=== PATIENT | female | born 1945 | race Caucasian/White ===

== ENCOUNTER 2017-04-06 16:13 | Inpatient (IN) | payer MEDICARE ==
[2017-04-06] VITALS (13 sets, daily range): BP systolic 98–133; BP diastolic 59–88
[~2017-04-06] VITALS: Ht 152.4 cm; Wt 67.6 kg
[2017-04-06 17:13] LABS: BASO # 0.1 x10^3/uL (0.0-0.2); BASO % 1 % (0-3); EOS % 1 % (0-3); LYMPH # 1.9 x10^3/uL (1.0-4.8); LYMPH % 18 % (24-48); MEAN CORPUSCULAR HEMOGLOBIN 32 pg (25-35); MEAN CORPUSCULAR HGB CONC 35 g/dL (31-37); MEAN CORPUSCULAR VOLUME 93 fL (79-100); MONO % 4 % (0-9); NEUT % 76 % (31-73); PLATELET COUNT 379 x10^3/uL (140-400); RED BLOOD COUNT 2.02 x10^6/uL (3.50-5.40); RED CELL DISTRIBUTION WIDTH 15.4 % (11.5-14.5); WHITE BLOOD COUNT 10.5 x10^3/uL (4.0-11.0)
--- NOTE | 2017-04-06 17:14 | PHYS DOC ---
Past Medical History Past Medical History: CAD, CHF, High Cholesterol, Hypertension Additional Past Medical Histor: back pain, cardiomyopathy Past Surgical History: Coronary Bypass Surgery Additional Past Surgical Histo: back surgery, aortic valve and mitral valve repair Alcohol Use: None Drug Use: None Adult General Chief Complaint Chief Complaint: SHORTNESS OF BREATH HPI HPI 71-year-old female with a history of CABG on March 20 convalescing at home now comes to the emergency department complaining of onset of shortness of breath this morning. Denies productive cough or fever. She has wounds on her anterior abdomen which are healing well with sutures in place as well as her left lower extremity which is also healing well with sutures in place and no erythema warmth or drainage. Patient denies chest pain. No fevers chills sweats or shaking chills. Other than shortness of breath patient otherwise feels well. No prior history of PE or hypercoagulability Review of Systems Review of Systems Constitutional: Denies fever or chills [] Eyes: Denies change in visual acuity, redness, or eye pain [] HENT: Denies nasal congestion or sore throat [] Respiratory: Denies cough or shortness of breath [] Cardiovascular: No additional information not addressed in HPI [] GI: Denies abdominal pain, nausea, vomiting, bloody stools or diarrhea [] : Denies dysuria or hematuria [] Musculoskeletal: Denies back pain or joint pain [] Integument: Denies rash or skin lesions [] Neurologic: Denies headache, focal weakness or sensory changes [] Endocrine: Denies polyuria or polydipsia [] Current Medications Current Medications Current Medications Medications (Trade) Dose Ordered Sig/Chrissie Start Time Stop Time Status Last Admin Dose Admin Info (Do NOT chart on this entry -- for MONITORING) 1 each PRN DAILY PRN 04/06/17 17:45 04/08/17 17:44 Iohexol (Omnipaque 300 Mg/ml) 75 ml 1X ONCE 04/06/17 18:00 04/06/17 18:01 DC 04/06/17 18:00 75 ML Sodium Chloride 1,000 ml @ 1,000 mls/hr 1X ONCE 04/06/17 19:00 04/06/17 19:59 Allergies Allergies Allergies Coded Allergies Type Severity Reaction Last Updated Verified No Known Drug Allergies 04/06/17 No Physical Exam Physical Exam Well appearing female no acute distress mild tachypnea and no hypoxia not tachycardic Constitutional: Well developed, well nourished, no acute distress, non-toxic appearance. [] HENT: Normocephalic, atraumatic, bilateral external ears normal, oropharynx moist, no oral exudates, nose normal. [] Eyes: PERRLA, EOMI, conjunctiva normal, no discharge. [] Neck: Normal range of motion, no tenderness, supple, no stridor. [] Cardiovascular:Heart rate regular rhythm, no murmur [] Lungs & Thorax: Bilateral breath sounds clear to auscultation [] Abdomen: Bowel sounds normal, soft, no tenderness, no masses, no pulsatile masses. [] Skin: Warm, dry, no erythema, no rash. [] Back: No tenderness, no CVA tenderness. [] Extremities: No tenderness, no cyanosis, no clubbing, ROM intact, no edema. [] Neurologic: Alert and oriented X 3, normal motor function, normal sensory function, no focal deficits noted. [] Psychologic: Affect normal, judgement normal, mood normal. [] Current Patient Data Vital Signs Vital Signs Date Time Temp Pulse Resp B/P (MAP) Pulse Ox O2 Delivery O2 Flow Rate FiO2 04/06/17 17:30 88 21 138/65 (89) 100 Room Air 04/06/17 16:28 98.9 98.9 Lab Values Laboratory Tests Test 04/06/17 17:00 04/06/17 17:40 White Blood Count 10.5 x10^3/uL (4.0-11.0) Red Blood Count 2.02 x10^6/uL (3.50-5.40) L Hemoglobin 6.5 g/dL (12.0-15.5) *L Hematocrit 18.8 % (36.0-47.0) *L Mean Corpuscular Volume 93 fL (79-100) Mean Corpuscular Hemoglobin 32 pg (25-35) Mean Corpuscular Hemoglobin Concent 35 g/dL (31-37) Red Cell Distribution Width 15.4 % (11.5-14.5) H Platelet Count 379 x10^3/uL (140-400) Neutrophils (%) (Auto) 76 % (31-73) H Lymphocytes (%) (Auto) 18 % (24-48) L Monocytes (%) (Auto) 4 % (0-9) Eosinophils (%) (Auto) 1 % (0-3) Basophils (%) (Auto) 1 % (0-3) Neutrophils # (Auto) 8.0 x10^3uL (1.8-7.7) H Lymphocytes # (Auto) 1.9 x10^3/uL (1.0-4.8) Monocytes # (Auto) 0.4 x10^3/uL (0.0-1.1) Eosinophils # (Auto) 0.1 x10^3/uL (0.0-0.7) Basophils # (Auto) 0.1 x10^3/uL (0.0-0.2) Sodium Level 138 mmol/L (136-145) Potassium Level 4.9 mmol/L (3.5-5.1) Chloride Level 106 mmol/L (98-107) Carbon Dioxide Level 23 mmol/L (21-32) Anion Gap 9 (6-14) Blood Urea Nitrogen 48 mg/dL (7-20) H Creatinine 0.9 mg/dL (0.6-1.0) Estimated GFR (Cockcroft-Gault) 61.5 Glucose Level 118 mg/dL (70-99) H Calcium Level 8.8 mg/dL (8.5-10.1) Troponin I Quantitative 0.121 ng/mL (0.000-0.055) Laboratory Tests 04/06/17 17:00 Laboratory Tests 04/06/17 17:40 EKG EKG Normal sinus rhythm at 86, left bundle no STEMI negative for Sgarbossa criteria. Radiology/Procedures Radiology/Procedures Chest x-ray chronic changes no acute disease interpreted by me [] Course & Med Decision Making Course & Med Decision Making Pertinent Labs and Imaging studies reviewed. (See chart for details) 71-year-old female 17 days postop from CABG no shortness of breath onset today. Workup pending including CTA to rule out PE. Vital signs stable. Hemoglobin 6.5 with hematocrit of 18.8. Patient typed and screened and after discussion with Dr. Dejon solis for 2 units for transfusion as available. BUN/creatinine 48 and 0.9 consistent with severe prerenal azotemia versus GI bleed. Patient denies hematochezia however she is taking supplemental iron. Her troponin is elevated at 0.121. EKG is wide complex consistent with left bundle however she has no clinical evidence to suggest acute coronary syndrome. Critical care 38 minutes Dragon Disclaimer Dragon Disclaimer This electronic medical record was generated, in whole or in part, using a voice recognition dictation system. Departure Departure Impression: Primary Impression: Severe anemia Additional Impressions: Elevated troponin Prerenal azotemia Acute dyspnea Disposition: 09 ADMITTED INPATIENT Admitting Physician: Milka Ashford Condition: GUARDED Referrals: IVANIA QUIÑONES MD (PCP) Problem Qualifiers PARIS BERRY MD Apr 06, 2017 17:14
[2017-04-06 17:24] LABS: HEMOGLOBIN 6.5 g/dL (12.0-15.5)
[2017-04-06 17:25] LABS: HEMATOCRIT 18.8 % (36.0-47.0)
[2017-04-06] MEDS ORDERED: IV NORMAL SALINE 1000ML BAG 1,000 ML IV ONE ×2 (17:30→19:00)
[2017-04-06] MEDS ORDERED: CONTRAST GIVEN MC PRN (17:45)
[2017-04-06] MEDS ORDERED: METO25TA4 PO (17:52)
[2017-04-06] MEDS ORDERED: ATOR40TA59 PO (17:52)
[2017-04-06] MEDS ORDERED: ASPI325T8 PO (17:52)
[2017-04-06] MEDS ORDERED: FERR-26 PO (17:52)
[2017-04-06] MEDS ORDERED: HYDR-963 PO (17:52)
[2017-04-06] MEDS ORDERED: CHOL10003 PO (17:52)
[2017-04-06] MEDS ORDERED: IOHEXOL 300 MG/ML 75 ML VIAL IV ONE (18:00)
[2017-04-06 18:11] LABS: CALCIUM 8.8 mg/dL (8.5-10.1); CREATININE 0.9 mg/dL (0.6-1.0); GFR 61.5; POTASSIUM 4.9 mmol/L (3.5-5.1)
--- NOTE | 2017-04-06 19:33 | RAD ---
Examination: CT angiogram chest HISTORY: History of shortness of breath COMPARISON: None TECHNIQUE: Axial CT images of the chest were performed with IV contrast. Coronal and sagittal 3-D MIP reformats are performed. Exposure: One or more of the following individualized dose reduction techniques were utilized for this examination: 1. Automated exposure control 2. Adjustment of the mA and/or kV according to patient size 3. Use of iterative reconstruction technique FINDINGS: The visualized thyroid gland grossly appears unremarkable. The central airways are patent. Mild cardiomegaly. Coronary artery calcifications identified. Prior changes of CABG. There is no evidence of filling defect identified in the main pulmonary arterial trunk and right and left main pulmonary arteries. There is no evidence of filling defect identified in the visualized lobar, segmental branches of the pulmonary arteries. Small left pleural effusion identified. Mild left lung base airspace opacities likely atelectasis or infiltrate The visualized liver, spleen, adrenals grossly appears unremarkable. Moderate degenerative changes thoracic spine. Aortic valve prosthesis identified. IMPRESSION: 1. No evidence of pulmonary embolism. 2. Small left lung base airspace opacities likely atelectasis or infiltrates with small left pleural effusion. Electronically signed by: Pankaj Aguila MD (04/06/2017 7:30 PM) [facility]
[2017-04-06 19:45] LABS: NEG OBC FOB NEG; POS OBC FOB POS
[2017-04-06] MEDS ORDERED: FAMOTIDINE 20 MG/2 ML VIAL IVP SCH (22:00)
[2017-04-06] MEDS: IV NORMAL SALINE 1000ML BAG 1,000 ML IV SCH (23:13)
[2017-04-06] MEDS ORDERED: SENN-37 PO (23:29)
[2017-04-07] VITALS (32 sets, daily range): BP systolic 56–145; BP diastolic 49–99
[2017-04-07] MEDS ORDERED: ONDANSETRON PF 4 MG/2 ML VIAL. IV PRN (07:00)
[2017-04-07 08:29] LABS: HEMATOCRIT 22.6 % (36.0-47.0); HEMOGLOBIN 7.9 g/dL (12.0-15.5); RED BLOOD COUNT 2.54 x10^6/uL (3.50-5.40); RED CELL DISTRIBUTION WIDTH 14.8 % (11.5-14.5); WHITE BLOOD COUNT 10.1 x10^3/uL (4.0-11.0)
[2017-04-07] MEDS: PANTOPRAZOLE IV PUSH 40 MG VIAL. IVP SCH ×2 (08:32→16:35)
[2017-04-07 08:41] LABS: CALCIUM 7.4 mg/dL (8.5-10.1); CREATININE 0.8 mg/dL (0.6-1.0); GFR 70.5; POTASSIUM 4.2 mmol/L (3.5-5.1)
--- NOTE | 2017-04-07 09:10 | RAD ---
Examination: Single frontal view the chest History: History of dizziness, syncope, shortness of breath Comparison: 11/10/2008 Findings: Median sternotomy wires identified. The cardiomediastinal silhouette grossly appears unremarkable. Trace left pleural effusion identified with minimal left lung base airspace opacity likely atelectasis or infiltrate. Impression: Minimal left lung base airspace opacity likely atelectasis or infiltrate with trace left pleural effusion.
--- NOTE | 2017-04-07 11:15 | PDOC1 ---
History and Physical Date of Admission Date of Admission DATE: 04/06/17 TIME: 10:55 Identification/Chief Complaint Chief Complaint nausea , lightheadedness , diaphoresis and shortness of breath Problems: (1) Prerenal azotemia (2) Elevated troponin (3) Acute dyspnea (4) Severe anemia (5) Hematemesis Source Source: Patient History of Present Illness History of Present Illness The patient was seen at her PCP for possible infection of her abdominal wounds and was given Keflex and did well She drove her car and went shopping for the first time after undergoing open heart surgery at [facility] about three weeks ago She woke up early on Saturday morning and felt nauseous but did not vomit, felt dizzy and lightheaded but went back to bed and slept When she went to get the morning paper she felt very dizzy , diaphoretic and markedly short of breath She did contact me and I adviced that she should come to the [facility] where she was found to be severly anemic with marked prerenal azotemia indicating that she has a significant G I Bleed Past Medical History Cardiovascular: CAD, HTN, Hyperlipidemia CENTRAL NERVOUS SYSTEM: Other (restless leg syndrome) Musculoskeletal: low back pain Past Surgical History Past Surgical History: Cholecystectomy, CABG, Cataract Removal, Other ( colonoscopy and back surgery) Family History Family History: Cancer, Coronary Artery Disease, Diabetes Social History Smoke: No ALCOHOL: none Drugs: None Current Problem List Problem List Problems Medical Problems: (1) Acute dyspnea Status: Acute (2) Elevated troponin Status: Acute (3) Prerenal azotemia Status: Acute (4) Severe anemia Status: Acute Problems: Current Medications Current Medications Current Medications Sodium Chloride 1,000 ml @ 1,000 mls/hr 1X ONCE IV Last administered on 17:40; Start 04/06/17 at 17:30; Stop 04/06/17 at 18:29; Status DC Iohexol (Omnipaque 300 Mg/ml) 75 ml 1X ONCE IV Last administered on 04/06/17 18:00; Start 04/06/17 at 18:00; Stop 04/06/17 at 18:01; Status DC Info (Do NOT chart on this entry -- for MONITORING) 1 each PRN DAILY PRN MC SEE COMMENTS; Start 04/06/17 at 17:45; Stop 04/08/17 at 17:44 Sodium Chloride 1,000 ml @ 1,000 mls/hr 1X ONCE IV Last administered on 23:37; Start 04/06/17 at 19:00; Stop 04/06/17 at 19:59; Status DC Famotidine (Pepcid) 20 mg QHS IVP Last administered on 04/06/17 23:12; Start at 22:00; Stop 04/07/17 at 07:13; Status DC Sodium Chloride 1,000 ml @ 100 mls/hr Q10H IV Last administered on 04/06/17 23 :13; Start 04/06/17 at 22:00 Ondansetron HCl (Zofran) 4 mg PRN Q4HRS PRN IV NAUSEA/VOMITING; Start 04/07/17 at 07:00 Pantoprazole Sodium (Protonix Vial) 40 mg BIDAC IVP Last administered on 08:32; Start 04/07/17 at 07:30 Active Scripts Active Reported Senokot-S Tablet (Sennosides/Docusate Sodium) 1 Each Tablet 2 Tab PO BID Metoprolol Tartrate 25 Mg Tablet 12.5 Mg PO BID Dorena 10-325 Tablet (Acetaminophen/Hydrocodone Bitart) 1 Each Tablet 1-2 Tab PO Q4-6HRS Ferrous Sulfate 325 Mg Tablet 1 Tab PO TID Vitamin D3 (Cholecalciferol (Vitamin D3)) 1,000 Unit Tablet 1 Tab PO DAILY Atorvastatin Calcium 40 Mg Tablet 40 Mg PO HS Aspirin 325 Mg Tablet 1 Tab PO DAILY Allergies Allergies: Coded Allergies: No Known Drug Allergies (Unverified , 04/06/17) ROS Hematological and Lymphatic: YES: Bleeding Problems, Blood Transfusions Respiratory: YES: SOB with excertion Gastrointestinal: Yes Nausea, Yes Vomiting, Yes Other (hematemesis) Physical Exam General: Alert, Oriented X3, Cooperative, No acute distress HEENT: Atraumatic, PERRLA, EOMI Lungs: Clear to auscultation Heart: S1S2, RRR, no thrills Cardiovascular: S1, S2 Abdomen: Normal bowel sounds, No tenderness Rectal Exam: other (positive for occult blood) Extremities: No clubbing, No cyanosis, No edema Skin: No rashes, No breakdown, No significant lesion Neuro: Normal gait, Normal speech, Strength at 5/5 X4 ext, Normal tone, Sensation intact, Cranial nerves 3-12 NL, Reflexes 2+ Vitals Vitals Vital Signs Date Time Temp Pulse Resp B/P (MAP) Pulse Ox O2 Delivery O2 Flow Rate FiO2 04/07/17 10:37 97.9 96 20 104/65 97.9 04/07/17 09:00 97 Room Air Labs Labs Laboratory Tests Test 04/06/17 17:00 04/06/17 17:40 04/06/17 19:24 04/07/17 01:15 White Blood Count 10.5 x10^3/uL (4.0-11.0) Red Blood Count 2.02 x10^6/uL (3.50-5.40) Hemoglobin 6.5 g/dL (12.0-15.5) 8.6 g/dL (12.0-15.5) Hematocrit 18.8 % (36.0-47.0) Mean Corpuscular Volume 93 fL (79-100) Mean Corpuscular Hemoglobin 32 pg (25-35) Mean Corpuscular Hemoglobin Concent 35 g/dL (31-37) Red Cell Distribution Width 15.4 % (11.5-14.5) Platelet Count 379 x10^3/uL (140-400) Neutrophils (%) (Auto) 76 % (31-73) Lymphocytes (%) (Auto) 18 % (24-48) Monocytes (%) (Auto) 4 % (0-9) Eosinophils (%) (Auto) 1 % (0-3) Basophils (%) (Auto) 1 % (0-3) Neutrophils # (Auto) 8.0 x10^3uL (1.8-7.7) Lymphocytes # (Auto) 1.9 x10^3/uL (1.0-4.8) Monocytes # (Auto) 0.4 x10^3/uL (0.0-1.1) Eosinophils # (Auto) 0.1 x10^3/uL (0.0-0.7) Basophils # (Auto) 0.1 x10^3/uL (0.0-0.2) Sodium Level 138 mmol/L (136-145) Potassium Level 4.9 mmol/L (3.5-5.1) Chloride Level 106 mmol/L (98-107) Carbon Dioxide Level 23 mmol/L (21-32) Anion Gap 9 (6-14) Blood Urea Nitrogen 48 mg/dL (7-20) Creatinine 0.9 mg/dL (0.6-1.0) Estimated GFR (Cockcroft-Gault) 61.5 Glucose Level 118 mg/dL (70-99) Calcium Level 8.8 mg/dL (8.5-10.1) Troponin I Quantitative 0.121 ng/mL (0.000-0.055) 0.119 ng/mL (0.000-0.055) Stool Occult Blood Positive (NEG) Test 04/07/17 07:00 04/07/17 08:15 Troponin I Quantitative 0.137 ng/mL (0.000-0.055) 0.143 ng/mL (0.000-0.055) White Blood Count 10.1 x10^3/uL (4.0-11.0) Red Blood Count 2.54 x10^6/uL (3.50-5.40) Hemoglobin 7.9 g/dL (12.0-15.5) Hematocrit 22.6 % (36.0-47.0) Mean Corpuscular Volume 89 fL (79-100) Mean Corpuscular Hemoglobin 31 pg (25-35) Mean Corpuscular Hemoglobin Concent 35 g/dL (31-37) Red Cell Distribution Width 14.8 % (11.5-14.5) Platelet Count 269 x10^3/uL (140-400) Sodium Level 143 mmol/L (136-145) Potassium Level 4.2 mmol/L (3.5-5.1) Chloride Level 112 mmol/L (98-107) Carbon Dioxide Level 21 mmol/L (21-32) Anion Gap 10 (6-14) Blood Urea Nitrogen 41 mg/dL (7-20) Creatinine 0.8 mg/dL (0.6-1.0) Estimated GFR (Cockcroft-Gault) 70.5 Glucose Level 133 mg/dL (70-99) Calcium Level 7.4 mg/dL (8.5-10.1) Laboratory Tests Test 04/06/17 17:00 04/06/17 17:40 04/06/17 19:24 04/07/17 01:15 White Blood Count 10.5 x10^3/uL (4.0-11.0) Red Blood Count 2.02 x10^6/uL (3.50-5.40) Hemoglobin 6.5 g/dL (12.0-15.5) 8.6 g/dL (12.0-15.5) Hematocrit 18.8 % (36.0-47.0) Mean Corpuscular Volume 93 fL (79-100) Mean Corpuscular Hemoglobin 32 pg (25-35) Mean Corpuscular Hemoglobin Concent 35 g/dL (31-37) Red Cell Distribution Width 15.4 % (11.5-14.5) Platelet Count 379 x10^3/uL (140-400) Neutrophils (%) (Auto) 76 % (31-73) Lymphocytes (%) (Auto) 18 % (24-48) Monocytes (%) (Auto) 4 % (0-9) Eosinophils (%) (Auto) 1 % (0-3) Basophils (%) (Auto) 1 % (0-3) Neutrophils # (Auto) 8.0 x10^3uL (1.8-7.7) Lymphocytes # (Auto) 1.9 x10^3/uL (1.0-4.8) Monocytes # (Auto) 0.4 x10^3/uL (0.0-1.1) Eosinophils # (Auto) 0.1 x10^3/uL (0.0-0.7) Basophils # (Auto) 0.1 x10^3/uL (0.0-0.2) Sodium Level 138 mmol/L (136-145) Potassium Level 4.9 mmol/L (3.5-5.1) Chloride Level 106 mmol/L (98-107) Carbon Dioxide Level 23 mmol/L (21-32) Anion Gap 9 (6-14) Blood Urea Nitrogen 48 mg/dL (7-20) Creatinine 0.9 mg/dL (0.6-1.0) Estimated GFR (Cockcroft-Gault) 61.5 Glucose Level 118 mg/dL (70-99) Calcium Level 8.8 mg/dL (8.5-10.1) Troponin I Quantitative 0.121 ng/mL (0.000-0.055) 0.119 ng/mL (0.000-0.055) Stool Occult Blood Positive (NEG) Test 04/07/17 07:00 04/07/17 08:15 Troponin I Quantitative 0.137 ng/mL (0.000-0.055) 0.143 ng/mL (0.000-0.055) White Blood Count 10.1 x10^3/uL (4.0-11.0) Red Blood Count 2.54 x10^6/uL (3.50-5.40) Hemoglobin 7.9 g/dL (12.0-15.5) Hematocrit 22.6 % (36.0-47.0) Mean Corpuscular Volume 89 fL (79-100) Mean Corpuscular Hemoglobin 31 pg (25-35) Mean Corpuscular Hemoglobin Concent 35 g/dL (31-37) Red Cell Distribution Width 14.8 % (11.5-14.5) Platelet Count 269 x10^3/uL (140-400) Sodium Level 143 mmol/L (136-145) Potassium Level 4.2 mmol/L (3.5-5.1) Chloride Level 112 mmol/L (98-107) Carbon Dioxide Level 21 mmol/L (21-32) Anion Gap 10 (6-14) Blood Urea Nitrogen 41 mg/dL (7-20) Creatinine 0.8 mg/dL (0.6-1.0) Estimated GFR (Cockcroft-Gault) 70.5 Glucose Level 133 mg/dL (70-99) Calcium Level 7.4 mg/dL (8.5-10.1) VTE Prophylaxis Ordered VTE Prophylaxis Devices: Yes VTE Pharmacological Prophylaxi: Contraindicated (scds) Assessment/Plan Assessment/Plan Acute blood loss anemia manifested as nausea ,vomiting , hematemesis dizziness, lightheadedness diaphoresis and shortness of breath Her H& H was low and did receive 2 units of PRBCS Her troponin was elevated She was admitted to ICU We did consult cardiology team, gastroenterology team NPO I V Protonix, zofran I V Fluid monitor H&H HOLD ASPIRIN RONALD TORRES MD Apr 07, 2017 11:14
--- NOTE | 2017-04-07 11:25 | PN ---
PROGRESS NOTES Subjective Subjective The patient continues to c/o nausea and has had multiple episode of hematemesi She denied any abdominal pain She has received so far three units of Prbcs Her BP is trending down and we will discuss with Dr Ross the need for endoscopy and or bleeding scan to find out the source of bleeding Objective Objective Vital Signs Date Time Temp Pulse Resp B/P (MAP) Pulse Ox O2 Delivery O2 Flow Rate FiO2 04/07/17 10:37 97.9 96 20 104/65 97.9 04/07/17 09:00 97 Room Air Intake and Output 04/07/17 07:00 Intake Total 1988 ml Balance 1988 ml Intake Oral 0 ml IV Total 1988 ml # Bowel Movements 1 Physical Exam Physical Exam pale but not jaundiced p 92 bp 96/56 COMMENT Acute blood loss anemia likely bleedin from gastric ulcer We will check H&H EVERY 6 hours and transfuse as needed continue with PPI Diagnosis DIAGNOSIS Acute blood loss anemia PROBLEM LIST Problems Medical Problems: (1) Acute dyspnea Status: Acute (2) Elevated troponin Status: Acute (3) Prerenal azotemia Status: Acute (4) Severe anemia Status: Acute Assessment Assessment Problems Medical Problems: (1) Acute dyspnea Status: Acute (2) Elevated troponin Status: Acute (3) Prerenal azotemia Status: Acute (4) Severe anemia Status: Acute Plan Plan of Care Keep in ICU Continue to monitir H&H every 6hours and transfuse as needed Keep NPO Continue with PPI Comment Review of Relevant I have reviewed the following items gabino (where applicable) has been applied. Labs Laboratory Tests Test 04/06/17 17:00 04/06/17 17:40 04/06/17 19:24 04/07/17 01:15 White Blood Count 10.5 x10^3/uL (4.0-11.0) Red Blood Count 2.02 x10^6/uL (3.50-5.40) Hemoglobin 6.5 g/dL (12.0-15.5) 8.6 g/dL (12.0-15.5) Hematocrit 18.8 % (36.0-47.0) Mean Corpuscular Volume 93 fL (79-100) Mean Corpuscular Hemoglobin 32 pg (25-35) Mean Corpuscular Hemoglobin Concent 35 g/dL (31-37) Red Cell Distribution Width 15.4 % (11.5-14.5) Platelet Count 379 x10^3/uL (140-400) Neutrophils (%) (Auto) 76 % (31-73) Lymphocytes (%) (Auto) 18 % (24-48) Monocytes (%) (Auto) 4 % (0-9) Eosinophils (%) (Auto) 1 % (0-3) Basophils (%) (Auto) 1 % (0-3) Neutrophils # (Auto) 8.0 x10^3uL (1.8-7.7) Lymphocytes # (Auto) 1.9 x10^3/uL (1.0-4.8) Monocytes # (Auto) 0.4 x10^3/uL (0.0-1.1) Eosinophils # (Auto) 0.1 x10^3/uL (0.0-0.7) Basophils # (Auto) 0.1 x10^3/uL (0.0-0.2) Sodium Level 138 mmol/L (136-145) Potassium Level 4.9 mmol/L (3.5-5.1) Chloride Level 106 mmol/L (98-107) Carbon Dioxide Level 23 mmol/L (21-32) Anion Gap 9 (6-14) Blood Urea Nitrogen 48 mg/dL (7-20) Creatinine 0.9 mg/dL (0.6-1.0) Estimated GFR (Cockcroft-Gault) 61.5 Glucose Level 118 mg/dL (70-99) Calcium Level 8.8 mg/dL (8.5-10.1) Troponin I Quantitative 0.121 ng/mL (0.000-0.055) 0.119 ng/mL (0.000-0.055) Stool Occult Blood Positive (NEG) Test 04/07/17 07:00 04/07/17 08:15 Troponin I Quantitative 0.137 ng/mL (0.000-0.055) 0.143 ng/mL (0.000-0.055) White Blood Count 10.1 x10^3/uL (4.0-11.0) Red Blood Count 2.54 x10^6/uL (3.50-5.40) Hemoglobin 7.9 g/dL (12.0-15.5) Hematocrit 22.6 % (36.0-47.0) Mean Corpuscular Volume 89 fL (79-100) Mean Corpuscular Hemoglobin 31 pg (25-35) Mean Corpuscular Hemoglobin Concent 35 g/dL (31-37) Red Cell Distribution Width 14.8 % (11.5-14.5) Platelet Count 269 x10^3/uL (140-400) Sodium Level 143 mmol/L (136-145) Potassium Level 4.2 mmol/L (3.5-5.1) Chloride Level 112 mmol/L (98-107) Carbon Dioxide Level 21 mmol/L (21-32) Anion Gap 10 (6-14) Blood Urea Nitrogen 41 mg/dL (7-20) Creatinine 0.8 mg/dL (0.6-1.0) Estimated GFR (Cockcroft-Gault) 70.5 Glucose Level 133 mg/dL (70-99) Calcium Level 7.4 mg/dL (8.5-10.1) Laboratory Tests Test 04/06/17 17:00 04/06/17 17:40 04/06/17 19:24 04/07/17 01:15 White Blood Count 10.5 x10^3/uL (4.0-11.0) Red Blood Count 2.02 x10^6/uL (3.50-5.40) Hemoglobin 6.5 g/dL (12.0-15.5) 8.6 g/dL (12.0-15.5) Hematocrit 18.8 % (36.0-47.0) Mean Corpuscular Volume 93 fL (79-100) Mean Corpuscular Hemoglobin 32 pg (25-35) Mean Corpuscular Hemoglobin Concent 35 g/dL (31-37) Red Cell Distribution Width 15.4 % (11.5-14.5) Platelet Count 379 x10^3/uL (140-400) Neutrophils (%) (Auto) 76 % (31-73) Lymphocytes (%) (Auto) 18 % (24-48) Monocytes (%) (Auto) 4 % (0-9) Eosinophils (%) (Auto) 1 % (0-3) Basophils (%) (Auto) 1 % (0-3) Neutrophils # (Auto) 8.0 x10^3uL (1.8-7.7) Lymphocytes # (Auto) 1.9 x10^3/uL (1.0-4.8) Monocytes # (Auto) 0.4 x10^3/uL (0.0-1.1) Eosinophils # (Auto) 0.1 x10^3/uL (0.0-0.7) Basophils # (Auto) 0.1 x10^3/uL (0.0-0.2) Sodium Level 138 mmol/L (136-145) Potassium Level 4.9 mmol/L (3.5-5.1) Chloride Level 106 mmol/L (98-107) Carbon Dioxide Level 23 mmol/L (21-32) Anion Gap 9 (6-14) Blood Urea Nitrogen 48 mg/dL (7-20) Creatinine 0.9 mg/dL (0.6-1.0) Estimated GFR (Cockcroft-Gault) 61.5 Glucose Level 118 mg/dL (70-99) Calcium Level 8.8 mg/dL (8.5-10.1) Troponin I Quantitative 0.121 ng/mL (0.000-0.055) 0.119 ng/mL (0.000-0.055) Stool Occult Blood Positive (NEG) Test 04/07/17 07:00 04/07/17 08:15 Troponin I Quantitative 0.137 ng/mL (0.000-0.055) 0.143 ng/mL (0.000-0.055) White Blood Count 10.1 x10^3/uL (4.0-11.0) Red Blood Count 2.54 x10^6/uL (3.50-5.40) Hemoglobin 7.9 g/dL (12.0-15.5) Hematocrit 22.6 % (36.0-47.0) Mean Corpuscular Volume 89 fL (79-100) Mean Corpuscular Hemoglobin 31 pg (25-35) Mean Corpuscular Hemoglobin Concent 35 g/dL (31-37) Red Cell Distribution Width 14.8 % (11.5-14.5) Platelet Count 269 x10^3/uL (140-400) Sodium Level 143 mmol/L (136-145) Potassium Level 4.2 mmol/L (3.5-5.1) Chloride Level 112 mmol/L (98-107) Carbon Dioxide Level 21 mmol/L (21-32) Anion Gap 10 (6-14) Blood Urea Nitrogen 41 mg/dL (7-20) Creatinine 0.8 mg/dL (0.6-1.0) Estimated GFR (Cockcroft-Gault) 70.5 Glucose Level 133 mg/dL (70-99) Calcium Level 7.4 mg/dL (8.5-10.1) Medications Current Medications Sodium Chloride 1,000 ml @ 1,000 mls/hr 1X ONCE IV Last administered on 17:40; Start 04/06/17 at 17:30; Stop 04/06/17 at 18:29; Status DC Iohexol (Omnipaque 300 Mg/ml) 75 ml 1X ONCE IV Last administered on 04/06/17 18:00; Start 04/06/17 at 18:00; Stop 04/06/17 at 18:01; Status DC Info (Do NOT chart on this entry -- for MONITORING) 1 each PRN DAILY PRN MC SEE COMMENTS; Start 04/06/17 at 17:45; Stop 04/08/17 at 17:44 Sodium Chloride 1,000 ml @ 1,000 mls/hr 1X ONCE IV Last administered on 23:37; Start 04/06/17 at 19:00; Stop 04/06/17 at 19:59; Status DC Famotidine (Pepcid) 20 mg QHS IVP Last administered on 04/06/17 23:12; Start at 22:00; Stop 04/07/17 at 07:13; Status DC Sodium Chloride 1,000 ml @ 100 mls/hr Q10H IV Last administered on 04/06/17 23 :13; Start 04/06/17 at 22:00 Ondansetron HCl (Zofran) 4 mg PRN Q4HRS PRN IV NAUSEA/VOMITING; Start 04/07/17 at 07:00 Pantoprazole Sodium (Protonix Vial) 40 mg BIDAC IVP Last administered on 08:32; Start 04/07/17 at 07:30 Active Scripts Active Reported Senokot-S Tablet (Sennosides/Docusate Sodium) 1 Each Tablet 2 Tab PO BID Metoprolol Tartrate 25 Mg Tablet 12.5 Mg PO BID [place] 10-325 Tablet (Acetaminophen/Hydrocodone Bitart) 1 Each Tablet 1-2 Tab PO Q4-6HRS Ferrous Sulfate 325 Mg Tablet 1 Tab PO TID Vitamin D3 (Cholecalciferol (Vitamin D3)) 1,000 Unit Tablet 1 Tab PO DAILY Atorvastatin Calcium 40 Mg Tablet 40 Mg PO HS Aspirin 325 Mg Tablet 1 Tab PO DAILY Vitals/I & O Vital Sign - Last 24 Hours 04/06/17 04/06/17 04/06/17 04/06/17 16:28 16:30 17:00 17:30 Temp 98.9 98.9 Pulse 76 86 90 88 Resp 20 20 22 21 B/P (MAP) 126/57 (80) 126/59 (81) 137/60 (85) 138/65 (89) Pulse Ox 95 97 98 100 O2 Delivery Room Air Room Air Room Air Room Air 04/06/17 04/06/17 04/06/17 04/06/17 18:30 19:00 20:00 20:15 Temp 98.6 98.6 Pulse 90 84 90 90 Resp 22 20 20 20 B/P (MAP) 119/75 (90) 121/78 (92) 128/60 (82) 133/88 (103) Pulse Ox 97 96 98 98 O2 Delivery Room Air Room Air Room Air Room Air 04/06/17 04/06/17 04/06/17 04/06/17 20:30 20:36 20:45 20:45 Temp 98.8 98.2 98.8 98.2 Pulse 90 90 87 90 Resp 20 24 20 20 B/P (MAP) 122/59 (80) 122/59 118/60 133/88 (103) Pulse Ox 98 98 O2 Delivery Room Air Room Air 04/06/17 04/06/17 04/06/17 04/06/17 21:00 21:15 21:30 22:00 Pulse 86 88 88 80 Resp 20 20 20 20 B/P (MAP) 118/60 (79) 117/64 (81) 124/60 (81) 124/63 (83) Pulse Ox 98 97 98 97 O2 Delivery Room Air Room Air Room Air Room Air 04/06/17 04/06/17 04/06/17 04/06/17 22:15 22:24 23:00 23:04 Temp 98.4 98.4 98.7 98.4 98.4 98.7 Pulse 80 79 78 79 Resp 18 16 16 15 B/P (MAP) 124/63 131/59 98/61 (73) 98/61 Pulse Ox 97 O2 Delivery Room Air 04/07/17 04/07/17 04/07/17 04/07/17 00:00 01:00 01:00 02:00 Temp 97.7 97.7 97.7 97.7 Pulse 72 74 71 74 Resp 15 15 11 15 B/P (MAP) 134/61 (85) 97/74 (82) 114/62 98/74 (82) Pulse Ox 97 97 97 O2 Delivery Room Air Room Air Room Air 04/07/17 04/07/17 04/07/17 04/07/17 03:00 04:00 05:00 06:00 Temp 98.1 98.1 Pulse 74 78 79 79 Resp 15 15 13 13 B/P (MAP) 98/74 (82) 97/78 (84) 110/58 (75) 110/55 (73) Pulse Ox 97 97 97 97 O2 Delivery Room Air Room Air Room Air Room Air 04/07/17 04/07/17 04/07/17 04/07/17 07:00 08:00 08:00 09:00 Temp 98.8 98.8 Pulse 79 89 89 Resp 20 20 15 B/P (MAP) 123/89 (100) 109/64 (79) Pulse Ox 97 98 97 O2 Delivery Room Air Room Air Room Air Room Air 04/07/17 10:37 Temp 97.9 97.9 Pulse 96 Resp 20 B/P (MAP) 104/65 Intake and Output 04/06/17 04/06/17 04/07/17 15:00 23:00 07:00 Intake Total 1000 ml 989 ml Balance 1000 ml 989 ml RONALD TORRES MD Apr 07, 2017 11:25
--- NOTE | 2017-04-07 11:41 | EKG ---
[facility] [address] [place] [address] Test Date: 2017-04-07 Test Time: 11:43:14 Pat Name: SARAH BETH GUEVARA Department: Room: 109 1 Gender: F Referral Agent: KEVIN : 1945 Requested By: JIE RODRIGUEZ Order Number: [id number] Reading MD: Measurements Intervals [place] Rate: 92 P: 35 LA: 146 QRS: -12 QRSD: 152 T: 160 QT: 400 QTc: 500 Interpretive Statements SINUS RHYTHM LEFTWARD AXIS NON SPECIFIC INTRAVENTRICULAR BLOCK ABNORMAL ECG RI6.01 No previous ECG available for comparison
--- NOTE | 2017-04-07 11:57 | PDOC2 ---
CONSULT Date of Consult Date of Consult DATE: 04/07/17 TIME: 11:49 Reason for Consult Reason for Consult: Acute blood loss anemia/hematemesis/nausea Identification/Chief Complaint Chief Complaint Weakness/fatigue Problems: History of Present Illness Reason for Visit: 71 year old patient presents with wekaness and fatigue over the past week. Decreased Hg noted with continued drop since admission. On iron at home with dark stools. Hematemesis this morning . Risk factors for PUD include aspirin use. No dysphagia or odynophagia is elicited. Weight and appetite are stable. Patient denies chest pain but has persistent nausea with persistent elevations in her troponin levels worrisome for ongoing myocardial ischemia and/or infarction. Cardiology input pending priro to any endoiscopic interventions. Past Medical History Cardiovascular: CAD, HTN, Hyperlipidemia CENTRAL NERVOUS SYSTEM: Other Musculoskeletal: low back pain Past Surgical History Past Surgical History: Cholecystectomy, CABG, Cataract Removal, Other Family History Family History: Cancer, Coronary Artery Disease, Diabetes Social History No ALCOHOL: none Drugs: None Current Problem List Problem List Problems Medical Problems: (1) Acute dyspnea Status: Acute (2) Elevated troponin Status: Acute (3) Prerenal azotemia Status: Acute (4) Severe anemia Status: Acute Current Medications Current Medications Current Medications Sodium Chloride 1,000 ml @ 1,000 mls/hr 1X ONCE IV Last administered on 17:40; Start 04/06/17 at 17:30; Stop 04/06/17 at 18:29; Status DC Iohexol (Omnipaque 300 Mg/ml) 75 ml 1X ONCE IV Last administered on 04/06/17 18:00; Start 04/06/17 at 18:00; Stop 04/06/17 at 18:01; Status DC Info (Do NOT chart on this entry -- for MONITORING) 1 each PRN DAILY PRN MC SEE COMMENTS; Start 04/06/17 at 17:45; Stop 04/08/17 at 17:44 Sodium Chloride 1,000 ml @ 1,000 mls/hr 1X ONCE IV Last administered on 23:37; Start 04/06/17 at 19:00; Stop 04/06/17 at 19:59; Status DC Famotidine (Pepcid) 20 mg QHS IVP Last administered on 04/06/17 23:12; Start at 22:00; Stop 04/07/17 at 07:13; Status DC Sodium Chloride 1,000 ml @ 100 mls/hr Q10H IV Last administered on 04/06/17 23 :13; Start 04/06/17 at 22:00 Ondansetron HCl (Zofran) 4 mg PRN Q4HRS PRN IV NAUSEA/VOMITING; Start 04/07/17 at 07:00 Pantoprazole Sodium (Protonix Vial) 40 mg BIDAC IVP Last administered on 08:32; Start 04/07/17 at 07:30 Active Scripts Active Reported Senokot-S Tablet (Sennosides/Docusate Sodium) 1 Each Tablet 2 Tab PO BID Metoprolol Tartrate 25 Mg Tablet 12.5 Mg PO BID [place]ana 10-325 Tablet (Acetaminophen/Hydrocodone Bitart) 1 Each Tablet 1-2 Tab PO Q4-6HRS Ferrous Sulfate 325 Mg Tablet 1 Tab PO TID Vitamin D3 (Cholecalciferol (Vitamin D3)) 1,000 Unit Tablet 1 Tab PO DAILY Atorvastatin Calcium 40 Mg Tablet 40 Mg PO HS Aspirin 325 Mg Tablet 1 Tab PO DAILY Allergies Allergies: Coded Allergies: No Known Drug Allergies (Unverified , 04/06/17) Physical Exam General: Alert Lungs: Clear to auscultation Heart: Regular rate, Normal S1, Normal S2 Abdomen: Normal bowel sounds, No hepatosplenomegaly Vitals VITALS Vital Signs Date Time Temp Pulse Resp B/P (MAP) Pulse Ox O2 Delivery O2 Flow Rate FiO2 04/07/17 10:51 97.8 92 20 64/49 (54) 98 Room Air 97.8 Labs Labs Laboratory Tests Test 04/06/17 17:00 04/06/17 17:40 04/06/17 19:24 04/07/17 01:15 White Blood Count 10.5 x10^3/uL (4.0-11.0) Red Blood Count 2.02 x10^6/uL (3.50-5.40) Hemoglobin 6.5 g/dL (12.0-15.5) 8.6 g/dL (12.0-15.5) Hematocrit 18.8 % (36.0-47.0) Mean Corpuscular Volume 93 fL (79-100) Mean Corpuscular Hemoglobin 32 pg (25-35) Mean Corpuscular Hemoglobin Concent 35 g/dL (31-37) Red Cell Distribution Width 15.4 % (11.5-14.5) Platelet Count 379 x10^3/uL (140-400) Neutrophils (%) (Auto) 76 % (31-73) Lymphocytes (%) (Auto) 18 % (24-48) Monocytes (%) (Auto) 4 % (0-9) Eosinophils (%) (Auto) 1 % (0-3) Basophils (%) (Auto) 1 % (0-3) Neutrophils # (Auto) 8.0 x10^3uL (1.8-7.7) Lymphocytes # (Auto) 1.9 x10^3/uL (1.0-4.8) Monocytes # (Auto) 0.4 x10^3/uL (0.0-1.1) Eosinophils # (Auto) 0.1 x10^3/uL (0.0-0.7) Basophils # (Auto) 0.1 x10^3/uL (0.0-0.2) Sodium Level 138 mmol/L (136-145) Potassium Level 4.9 mmol/L (3.5-5.1) Chloride Level 106 mmol/L (98-107) Carbon Dioxide Level 23 mmol/L (21-32) Anion Gap 9 (6-14) Blood Urea Nitrogen 48 mg/dL (7-20) Creatinine 0.9 mg/dL (0.6-1.0) Estimated GFR (Cockcroft-Gault) 61.5 Glucose Level 118 mg/dL (70-99) Calcium Level 8.8 mg/dL (8.5-10.1) Troponin I Quantitative 0.121 ng/mL (0.000-0.055) 0.119 ng/mL (0.000-0.055) Stool Occult Blood Positive (NEG) Test 04/07/17 07:00 04/07/17 08:15 Troponin I Quantitative 0.137 ng/mL (0.000-0.055) 0.143 ng/mL (0.000-0.055) White Blood Count 10.1 x10^3/uL (4.0-11.0) Red Blood Count 2.54 x10^6/uL (3.50-5.40) Hemoglobin 7.9 g/dL (12.0-15.5) Hematocrit 22.6 % (36.0-47.0) Mean Corpuscular Volume 89 fL (79-100) Mean Corpuscular Hemoglobin 31 pg (25-35) Mean Corpuscular Hemoglobin Concent 35 g/dL (31-37) Red Cell Distribution Width 14.8 % (11.5-14.5) Platelet Count 269 x10^3/uL (140-400) Sodium Level 143 mmol/L (136-145) Potassium Level 4.2 mmol/L (3.5-5.1) Chloride Level 112 mmol/L (98-107) Carbon Dioxide Level 21 mmol/L (21-32) Anion Gap 10 (6-14) Blood Urea Nitrogen 41 mg/dL (7-20) Creatinine 0.8 mg/dL (0.6-1.0) Estimated GFR (Cockcroft-Gault) 70.5 Glucose Level 133 mg/dL (70-99) Calcium Level 7.4 mg/dL (8.5-10.1) Laboratory Tests Test 04/06/17 17:00 04/06/17 17:40 04/06/17 19:24 04/07/17 01:15 White Blood Count 10.5 x10^3/uL (4.0-11.0) Red Blood Count 2.02 x10^6/uL (3.50-5.40) Hemoglobin 6.5 g/dL (12.0-15.5) 8.6 g/dL (12.0-15.5) Hematocrit 18.8 % (36.0-47.0) Mean Corpuscular Volume 93 fL (79-100) Mean Corpuscular Hemoglobin 32 pg (25-35) Mean Corpuscular Hemoglobin Concent 35 g/dL (31-37) Red Cell Distribution Width 15.4 % (11.5-14.5) Platelet Count 379 x10^3/uL (140-400) Neutrophils (%) (Auto) 76 % (31-73) Lymphocytes (%) (Auto) 18 % (24-48) Monocytes (%) (Auto) 4 % (0-9) Eosinophils (%) (Auto) 1 % (0-3) Basophils (%) (Auto) 1 % (0-3) Neutrophils # (Auto) 8.0 x10^3uL (1.8-7.7) Lymphocytes # (Auto) 1.9 x10^3/uL (1.0-4.8) Monocytes # (Auto) 0.4 x10^3/uL (0.0-1.1) Eosinophils # (Auto) 0.1 x10^3/uL (0.0-0.7) Basophils # (Auto) 0.1 x10^3/uL (0.0-0.2) Sodium Level 138 mmol/L (136-145) Potassium Level 4.9 mmol/L (3.5-5.1) Chloride Level 106 mmol/L (98-107) Carbon Dioxide Level 23 mmol/L (21-32) Anion Gap 9 (6-14) Blood Urea Nitrogen 48 mg/dL (7-20) Creatinine 0.9 mg/dL (0.6-1.0) Estimated GFR (Cockcroft-Gault) 61.5 Glucose Level 118 mg/dL (70-99) Calcium Level 8.8 mg/dL (8.5-10.1) Troponin I Quantitative 0.121 ng/mL (0.000-0.055) 0.119 ng/mL (0.000-0.055) Stool Occult Blood Positive (NEG) Test 04/07/17 07:00 04/07/17 08:15 Troponin I Quantitative 0.137 ng/mL (0.000-0.055) 0.143 ng/mL (0.000-0.055) White Blood Count 10.1 x10^3/uL (4.0-11.0) Red Blood Count 2.54 x10^6/uL (3.50-5.40) Hemoglobin 7.9 g/dL (12.0-15.5) Hematocrit 22.6 % (36.0-47.0) Mean Corpuscular Volume 89 fL (79-100) Mean Corpuscular Hemoglobin 31 pg (25-35) Mean Corpuscular Hemoglobin Concent 35 g/dL (31-37) Red Cell Distribution Width 14.8 % (11.5-14.5) Platelet Count 269 x10^3/uL (140-400) Sodium Level 143 mmol/L (136-145) Potassium Level 4.2 mmol/L (3.5-5.1) Chloride Level 112 mmol/L (98-107) Carbon Dioxide Level 21 mmol/L (21-32) Anion Gap 10 (6-14) Blood Urea Nitrogen 41 mg/dL (7-20) Creatinine 0.8 mg/dL (0.6-1.0) Estimated GFR (Cockcroft-Gault) 70.5 Glucose Level 133 mg/dL (70-99) Calcium Level 7.4 mg/dL (8.5-10.1) Assessment/Plan Assessment/Plan Acute blood loss anemia- with nausea and hematemesis. PUD and/or Melody-pendleton tear lead differential. Malignancy and/or variceal source less likely, Increased troponin levels worrisome for myocardial ischemia and/or infarction despite prior CABG. Cardiology input/clearance prior to any endoscopic intervention. Plan transfusional support to maintain Hg > 8/serial cbcs acid suppressive therapy consider upper endoscopy once cardiac status clarified/clearance given MANUEL CUELLAR MD Apr 07, 2017 11:57
--- NOTE | 2017-04-07 12:12 | EKG ---
[facility] [address] [place] [address] Test Date: 2017-04-06 Test Time: 16:30:33 Pat Name: SARAH BETH GUEVARA Department: Room: Gender: F Furnace [employer]ter: : 1945 Requested By: PARIS BERRY Order Number: [id number] Reading MD: Measurements Intervals [place] Rate: 86 P: 11 [place]: 154 QRS: -12 QRSD: 154 T: 164 QT: 412 QTc: 496 Interpretive Statements SINUS RHYTHM LEFTWARD AXIS NON SPECIFIC INTRAVENTRICULAR BLOCK QRS(T) CONTOUR ABNORMALITY CONSISTENT WITH ANTEROSEPTAL INFARCT POSSIBLY RECENT ABNORMAL ECG RI6.01 No previous ECG available for comparison
[2017-04-07] MEDS: IV NORMAL SALINE 1000ML BAG 1,000 ML IV SCH ×2 (12:20→21:53)
[2017-04-07] MEDS ORDERED: MIDAZOLAM HCL/PF 5 MG/5 ML VIAL. ONE (12:42)
[2017-04-07] MEDS ORDERED: fentaNYL PF VIAL 100 MCG/2 ML VIAL ONE (12:43)
[2017-04-07] MEDS ORDERED: MIDAZOLAM HCL/PF 5 MG/5 ML VIAL. IV ONE ×4 (13:40→13:44)
[2017-04-07] MEDS ORDERED: fentaNYL PF VIAL 100 MCG/2 ML VIAL IV ONE (13:41)
[2017-04-07] MEDS ORDERED: EPINEPHrine 1 MG/ML VIAL SQ ONE (13:46)
[2017-04-07] MEDS ORDERED: EPINEPHrine 1 MG/ML VIAL ONE (13:48)
--- NOTE | 2017-04-07 14:09 | PDOC4 ---
Operative Note Operative Note EGD with epi injection/cautery Meds Versed 4 mg/Fentanyl 50 mcg iv Pre-op dx acute blood loss anemia/hematemesis Post-op dx bleeding duodenal ulcer posterior wall ist portion duodenum s/p 9 cc epi injection and gold probe cautery with pigmented protuberance Plan serial cbcbs transfuse to maintain Hg > 8 acid suppressive therapy iv for 48 hours with increased risk of rebleeding of 40% with endoscopic findings surgical consult and IR consults. favor embolization if patient rebleeds with recent CABG MANUEL CUELLAR MD Apr 07, 2017 14:09
[2017-04-07 14:30] LABS: HEMATOCRIT 24.1 % (36.0-47.0); HEMOGLOBIN 8.1 g/dL (12.0-15.5)
--- NOTE | 2017-04-07 14:36 | PDOC2 ---
Consult: Covering for Dr. Beasley. This is a 71-year-old white female who was hospitalized with shortness of breath. She had had open heart surgery and was in [facility] from 04/19 to 04/24. She underwent 2 coronary artery bypasses, aortic valve replacement with a bioprosthetic valve, A mitral valve repair, and a septal myomectomy. She did receive a blood transfusion but this was for blood loss during surgery and not a GI bleed. She was asked to take aspirin 325 mg a day but no anticoagulation. She complains of no chest pain but has abdominal pain. Her hemoglobin was 6.5 g percent on admission. It remains low after blood transfusion. She had a large tarry stool. On examination she was in no distress but extremely worried about her status. The heart rate was 90/m. The blood pressure is 110/70. The lungs were clear. There was a grade 3 to 4/6 pansystolic murmur heard at the apex. This same murmur was heard over the precordium. Abdomen is soft. \ Showed the hemoglobin to be 6.5 g percent. Troponin was mildly elevated from 0.119 to 0.143. An EKG showed a left bundle branch block. IMPRESSION 1. Severe anemia due to GI loss probable continued bleed 2. Recent open heart surgery including 2 bypass grafts, a myomectomy AV replacemwntand mitral valve repair. 3.Valve surgery that requires her to be on aspirin 4, Mild elevation of the troponin with minor variations probably of no clinical significance 5. Left bundle branch block on EKG and so cannot be used to determine myocardial ischemia An I spoke to Dr. Zaman who indicated that but for the elevated troponin he would definitely proceed with EGD today. I agree with him because she needs to be on aspirin for the valve surgeries. Spoke to the patient. Informed her that the risk of an acute coronary syndrome is far far lower than the risk of not doing an EGD to control the bleeding. She saw the point though was very worried. I tried to allay her fears by stating that since she had had the bypass surgery by a very competent surgeon it is very unlikely that she would have an NH. She was thus cleared for the EGD and the patient was agreeable. Thank you for asking us to see her. Like to obtain an echocardiogram tomorrow because she does have a loud systolic murmur. JIE RODRIGUEZ MD Apr 07, 2017 14:36
--- NOTE | 2017-04-07 16:06 | PDOC2 ---
CONSULT Date of Consult Date of Consult DATE: 04/07/17 TIME: 16:01 Reason for Consult Reason for Consult: duodenal ulcer with hemorrhage Referring Physician Referring Physician: Junie Identification/Chief Complaint Chief Complaint nausea Problems: Source Source: Patient History of Present Illness Reason for Visit: 71 yo F s/p recent open heart surgery presents with severe fatigue and hematemesis. Found to have anemia and underwent EGD with control of bleeding duodenal ulcer. Pt seen in ICU, stable, after EGD. Patient reports mild nausea , but otherwise doing well. Past Medical History Cardiovascular: CAD, HTN, Hyperlipidemia CENTRAL NERVOUS SYSTEM: Other Musculoskeletal: low back pain Past Surgical History Past Surgical History: Cholecystectomy, CABG, Cataract Removal, Other Family History Family History: Cancer, Coronary Artery Disease, Diabetes Social History No ALCOHOL: none Drugs: None Current Problem List Problem List Problems Medical Problems: (1) Acute dyspnea Status: Acute (2) Elevated troponin Status: Acute (3) Prerenal azotemia Status: Acute (4) Severe anemia Status: Acute Current Medications Current Medications Current Medications Sodium Chloride 1,000 ml @ 1,000 mls/hr 1X ONCE IV Last administered on 17:40; Start 04/06/17 at 17:30; Stop 04/06/17 at 18:29; Status DC Iohexol (Omnipaque 300 Mg/ml) 75 ml 1X ONCE IV Last administered on 04/06/17 18:00; Start 04/06/17 at 18:00; Stop 04/06/17 at 18:01; Status DC Info (Do NOT chart on this entry -- for MONITORING) 1 each PRN DAILY PRN MC SEE COMMENTS; Start 04/06/17 at 17:45; Stop 04/08/17 at 17:44 Sodium Chloride 1,000 ml @ 1,000 mls/hr 1X ONCE IV Last administered on 23:37; Start 04/06/17 at 19:00; Stop 04/06/17 at 19:59; Status DC Famotidine (Pepcid) 20 mg QHS IVP Last administered on 04/06/17 23:12; Start at 22:00; Stop 04/07/17 at 07:13; Status DC Sodium Chloride 1,000 ml @ 100 mls/hr Q10H IV Last administered on 04/07/17 12 :20; Start 04/06/17 at 22:00 Ondansetron HCl (Zofran) 4 mg PRN Q4HRS PRN IV NAUSEA/VOMITING Last administered on 04/07/17 14:23; Start 04/07/17 at 07:00 Pantoprazole Sodium (Protonix Vial) 40 mg BIDAC IVP Last administered on 08:32; Start 04/07/17 at 07:30 Midazolam HCl (Versed) 5 mg STK-MED ONCE .ROUTE ; Start 04/07/17 at 12:42; Stop 04/07/17 at 12:43; Status DC Fentanyl Citrate (Fentanyl 2ml Vial) 100 mcg STK-MED ONCE .ROUTE ; Start at 12:43; Stop 04/07/17 at 12:44; Status DC Midazolam HCl (Versed) 5 mg STK-MED ONCE IV Last administered on 04/07/17 13:40 ; Start 04/07/17 at 13:40; Stop 04/07/17 at 13:58; Status DC Fentanyl Citrate (Fentanyl 2ml Vial) 100 mcg STK-MED ONCE IV Last administered on 04/07/17 13:41; Start 04/07/17 at 13:41; Stop 04/07/17 at 13:58; Status DC Midazolam HCl (Versed) 5 mg STK-MED ONCE IV Last administered on 04/07/17 13:42 ; Start 04/07/17 at 13:42; Stop 04/07/17 at 13:58; Status DC Epinephrine HCl (Adrenalin) 1 mg STK-MED ONCE .ROUTE ; Start 04/07/17 at 13:48; Stop 04/07/17 at 13:49; Status DC Midazolam HCl (Versed) 5 mg STK-MED ONCE IV Last administered on 04/07/17 13:43 ; Start 04/07/17 at 13:43; Stop 04/07/17 at 13:58; Status DC Midazolam HCl (Versed) 5 mg STK-MED ONCE IV Last administered on 04/07/17 13:44 ; Start 04/07/17 at 13:44; Stop 04/07/17 at 14:05; Status DC Epinephrine HCl (Adrenalin) 1 mg STK-MED ONCE SQ Last administered on 7/9/17at 13:46; Start 04/07/17 at 13:46; Stop 04/07/17 at 14:05; Status DC Active Scripts Active Reported Senokot-S Tablet (Sennosides/Docusate Sodium) 1 Each Tablet 2 Tab PO BID Metoprolol Tartrate 25 Mg Tablet 12.5 Mg PO BID [place] 10-325 Tablet (Acetaminophen/Hydrocodone Bitart) 1 Each Tablet 1-2 Tab PO Q4-6HRS Ferrous Sulfate 325 Mg Tablet 1 Tab PO TID Vitamin D3 (Cholecalciferol (Vitamin D3)) 1,000 Unit Tablet 1 Tab PO DAILY Atorvastatin Calcium 40 Mg Tablet 40 Mg PO HS Aspirin 325 Mg Tablet 1 Tab PO DAILY Allergies Allergies: Coded Allergies: No Known Drug Allergies (Unverified , 04/07/17) ROS Gastrointestinal: Yes Nausea, Yes Hematochezia Physical Exam General: Alert, Oriented X3, Cooperative, No acute distress HEENT: Atraumatic, EOMI Lungs: Normal air movement Abdomen: Soft, No tenderness Extremities: No clubbing, No cyanosis Skin: No rashes, No breakdown Neuro: Normal speech MUSCULOSKELETAL: No joint tenderness Vitals VITALS Vital Signs Date Time Temp Pulse Resp B/P (MAP) Pulse Ox O2 Delivery O2 Flow Rate FiO2 04/07/17 15:30 97 20 133/59 (83) 99 Nasal Cannula 2.0 04/07/17 12:30 98.8 98.8 Labs Labs Laboratory Tests Test 04/06/17 17:00 04/06/17 17:40 04/06/17 19:24 04/07/17 01:15 White Blood Count 10.5 x10^3/uL (4.0-11.0) Red Blood Count 2.02 x10^6/uL (3.50-5.40) Hemoglobin 6.5 g/dL (12.0-15.5) 8.6 g/dL (12.0-15.5) Hematocrit 18.8 % (36.0-47.0) Mean Corpuscular Volume 93 fL (79-100) Mean Corpuscular Hemoglobin 32 pg (25-35) Mean Corpuscular Hemoglobin Concent 35 g/dL (31-37) Red Cell Distribution Width 15.4 % (11.5-14.5) Platelet Count 379 x10^3/uL (140-400) Neutrophils (%) (Auto) 76 % (31-73) Lymphocytes (%) (Auto) 18 % (24-48) Monocytes (%) (Auto) 4 % (0-9) Eosinophils (%) (Auto) 1 % (0-3) Basophils (%) (Auto) 1 % (0-3) Neutrophils # (Auto) 8.0 x10^3uL (1.8-7.7) Lymphocytes # (Auto) 1.9 x10^3/uL (1.0-4.8) Monocytes # (Auto) 0.4 x10^3/uL (0.0-1.1) Eosinophils # (Auto) 0.1 x10^3/uL (0.0-0.7) Basophils # (Auto) 0.1 x10^3/uL (0.0-0.2) Sodium Level 138 mmol/L (136-145) Potassium Level 4.9 mmol/L (3.5-5.1) Chloride Level 106 mmol/L (98-107) Carbon Dioxide Level 23 mmol/L (21-32) Anion Gap 9 (6-14) Blood Urea Nitrogen 48 mg/dL (7-20) Creatinine 0.9 mg/dL (0.6-1.0) Estimated GFR (Cockcroft-Gault) 61.5 Glucose Level 118 mg/dL (70-99) Calcium Level 8.8 mg/dL (8.5-10.1) Troponin I Quantitative 0.121 ng/mL (0.000-0.055) 0.119 ng/mL (0.000-0.055) Stool Occult Blood Positive (NEG) Test 04/07/17 07:00 04/07/17 08:15 04/07/17 14:20 Troponin I Quantitative 0.137 ng/mL (0.000-0.055) 0.143 ng/mL (0.000-0.055) White Blood Count 10.1 x10^3/uL (4.0-11.0) Red Blood Count 2.54 x10^6/uL (3.50-5.40) Hemoglobin 7.9 g/dL (12.0-15.5) 8.1 g/dL (12.0-15.5) Hematocrit 22.6 % (36.0-47.0) 24.1 % (36.0-47.0) Mean Corpuscular Volume 89 fL (79-100) Mean Corpuscular Hemoglobin 31 pg (25-35) Mean Corpuscular Hemoglobin Concent 35 g/dL (31-37) Red Cell Distribution Width 14.8 % (11.5-14.5) Platelet Count 269 x10^3/uL (140-400) Sodium Level 143 mmol/L (136-145) Potassium Level 4.2 mmol/L (3.5-5.1) Chloride Level 112 mmol/L (98-107) Carbon Dioxide Level 21 mmol/L (21-32) Anion Gap 10 (6-14) Blood Urea Nitrogen 41 mg/dL (7-20) Creatinine 0.8 mg/dL (0.6-1.0) Estimated GFR (Cockcroft-Gault) 70.5 Glucose Level 133 mg/dL (70-99) Calcium Level 7.4 mg/dL (8.5-10.1) Laboratory Tests Test 04/06/17 17:00 04/06/17 17:40 04/06/17 19:24 04/07/17 01:15 White Blood Count 10.5 x10^3/uL (4.0-11.0) Red Blood Count 2.02 x10^6/uL (3.50-5.40) Hemoglobin 6.5 g/dL (12.0-15.5) 8.6 g/dL (12.0-15.5) Hematocrit 18.8 % (36.0-47.0) Mean Corpuscular Volume 93 fL (79-100) Mean Corpuscular Hemoglobin 32 pg (25-35) Mean Corpuscular Hemoglobin Concent 35 g/dL (31-37) Red Cell Distribution Width 15.4 % (11.5-14.5) Platelet Count 379 x10^3/uL (140-400) Neutrophils (%) (Auto) 76 % (31-73) Lymphocytes (%) (Auto) 18 % (24-48) Monocytes (%) (Auto) 4 % (0-9) Eosinophils (%) (Auto) 1 % (0-3) Basophils (%) (Auto) 1 % (0-3) Neutrophils # (Auto) 8.0 x10^3uL (1.8-7.7) Lymphocytes # (Auto) 1.9 x10^3/uL (1.0-4.8) Monocytes # (Auto) 0.4 x10^3/uL (0.0-1.1) Eosinophils # (Auto) 0.1 x10^3/uL (0.0-0.7) Basophils # (Auto) 0.1 x10^3/uL (0.0-0.2) Sodium Level 138 mmol/L (136-145) Potassium Level 4.9 mmol/L (3.5-5.1) Chloride Level 106 mmol/L (98-107) Carbon Dioxide Level 23 mmol/L (21-32) Anion Gap 9 (6-14) Blood Urea Nitrogen 48 mg/dL (7-20) Creatinine 0.9 mg/dL (0.6-1.0) Estimated GFR (Cockcroft-Gault) 61.5 Glucose Level 118 mg/dL (70-99) Calcium Level 8.8 mg/dL (8.5-10.1) Troponin I Quantitative 0.121 ng/mL (0.000-0.055) 0.119 ng/mL (0.000-0.055) Stool Occult Blood Positive (NEG) Test 04/07/17 07:00 04/07/17 08:15 04/07/17 14:20 Troponin I Quantitative 0.137 ng/mL (0.000-0.055) 0.143 ng/mL (0.000-0.055) White Blood Count 10.1 x10^3/uL (4.0-11.0) Red Blood Count 2.54 x10^6/uL (3.50-5.40) Hemoglobin 7.9 g/dL (12.0-15.5) 8.1 g/dL (12.0-15.5) Hematocrit 22.6 % (36.0-47.0) 24.1 % (36.0-47.0) Mean Corpuscular Volume 89 fL (79-100) Mean Corpuscular Hemoglobin 31 pg (25-35) Mean Corpuscular Hemoglobin Concent 35 g/dL (31-37) Red Cell Distribution Width 14.8 % (11.5-14.5) Platelet Count 269 x10^3/uL (140-400) Sodium Level 143 mmol/L (136-145) Potassium Level 4.2 mmol/L (3.5-5.1) Chloride Level 112 mmol/L (98-107) Carbon Dioxide Level 21 mmol/L (21-32) Anion Gap 10 (6-14) Blood Urea Nitrogen 41 mg/dL (7-20) Creatinine 0.8 mg/dL (0.6-1.0) Estimated GFR (Cockcroft-Gault) 70.5 Glucose Level 133 mg/dL (70-99) Calcium Level 7.4 mg/dL (8.5-10.1) Images Images Ct chest without obvious problem Assessment/Plan Assessment/Plan duodenal ulcer with hemorrhage agree with EGD, PPI and supportive care agree with IR first if rebleeding will follow for possible intervention Thanks for consult! EUSEBIA BARRETO MD Apr 07, 2017 16:05
[2017-04-07 19:31] LABS: HEMATOCRIT 21.8 % (36.0-47.0); HEMOGLOBIN 7.5 g/dL (12.0-15.5); RED BLOOD COUNT 2.48 x10^6/uL (3.50-5.40); WHITE BLOOD COUNT 11.8 x10^3/uL (4.0-11.0)
[2017-04-08] VITALS (25 sets, daily range): BP systolic 80–166; BP diastolic 49–72
[2017-04-08] MEDS: IV NORMAL SALINE 1000ML BAG 1,000 ML IV SCH ×3 (04:00→22:23)
[2017-04-08 04:50] LABS: BASO % 1 % (0-3); EOS % 1 % (0-3); HEMATOCRIT 24.8 % (36.0-47.0); HEMOGLOBIN 8.6 g/dL (12.0-15.5); LYMPH # 1.9 x10^3/uL (1.0-4.8); LYMPH % 22 % (24-48); MEAN CORPUSCULAR HEMOGLOBIN 30 pg (25-35); MEAN CORPUSCULAR HGB CONC 34 g/dL (31-37); MEAN CORPUSCULAR VOLUME 87 fL (79-100); MONO % 5 % (0-9); NEUT % 72 % (31-73); PLATELET COUNT 175 x10^3/uL (140-400); RED BLOOD COUNT 2.87 x10^6/uL (3.50-5.40); RED CELL DISTRIBUTION WIDTH 16.5 % (11.5-14.5)
[2017-04-08 05:08] LABS: CALCIUM 8.1 mg/dL (8.5-10.1); CREATININE 0.9 mg/dL (0.6-1.0); GFR 61.5; MAGNESIUM 1.9 mg/dL (1.8-2.4); POTASSIUM 4.2 mmol/L (3.5-5.1)
[2017-04-08 05:16] LABS: INR 1.5 (0.8-1.1); PROTHROMBIN TIME PATIENT 16.8 SEC (11.7-14.0)
--- NOTE | 2017-04-08 06:01 | ACF ---
Admission Forms Criteria ANEMIA, IRON DEFICIENCY OR UNSPECIFIED Clinical Indications for Inpatient Care (Place 'X' for any and all applicable criteria): Admission is indicated for ANY ONE of the following(1)(2)(3)(4)(5)(6)(7): [X] I. Inpatient admission required rather than observation care (Also use Anemia, Iron Deficiency or Unspecified: Observation Care guideline as appropriate) because of ANY ONE of the following: [] a) Hemodynamic instability that is severe or persistent [] b) Active bleeding that cannot be rapidly controlled [] c) CVS symptoms (i.e., dyspnea, chest pain, heart failure) that are severe or persistent [] d) Neurologic symptoms (i.e., cognitive impairment, recurrent syncope or near syncope) that are severe or persistent [] e) Cardiac arrhythmias of immediate concern [] f) Acute peripheral ischemia (e.g., pulseless, cool, mottled, or cyanotic extremity) [] g) High-risk low platelet count [] h) Acute renal failure [X] i) Ongoing transfusion for blood loss (greater than 2 units) [] j) IV fluid to replace significant ongoing (eg, >24 hours) losses (> 3 L/m2 per day) [] k) Pulmonary artery catheter monitoring [] l) Supplemental oxygen or respiratory treatments for over 24 hours that are performable only in acute inpatient setting [] m) Immediate inpatient surgery [] n) Other condition, treatment or monitoring requiring inpatient admission [] II Active massive hemorrhage [] III. Active hemolysis with rapidly progressive anemia [A](6) Extended stay beyond goal length of stay may be needed for (17)(18) []a) Diagnosed cause of anemia requiring longer hospitalization (eg, active GI bleeding, immune hemolysis requiring electrophoresis, complications of malignancy requiring acute care []b) Continued emergent anemia indicators (23) []c) Transfusion reactions []d) Associated leukopenia or thrombocytopenia needing inpatient care []e) Active comorbidities (eg, renal failure, heart failure) The original [facility] content created by [facility] has been revised. The portions of the content which have been revised are identified through the use of italic text or in bold. [facility] Guidelines has neither reviewed nor approved the modified material. All other unmodified content is copyright [facility] Care [facility]. Please see references footnoted in the original [facility] edition 2016 Admission Criteria Met?: Yes JOSIAH ESTRADA Apr 08, 2017 06:01
--- NOTE | 2017-04-08 08:39 | PDOC ---
BHAVIK WILSON LINE ASSIGNER 04/08/17 0839: SURGICAL PROGRESS NOTE Subjective hunger pains no n/v loose dark stools Vital Signs Vital Signs Date Time Temp Pulse Resp B/P (MAP) Pulse Ox O2 Delivery O2 Flow Rate FiO2 04/08/17 08:00 Room Air 04/08/17 08:00 98.1 69 12 132/58 (82) 96 98.1 04/07/17 15:30 2.0 I&O Intake and Output 04/08/17 07:00 Intake Total 2594 ml Output Total 2 ml Balance 2592 ml Intake Oral 0 ml IV Total 1241 ml Blood Product 1138 ml Blood Product IV Normal Saline Flush 215 ml Output Urine Total 1 ml Stool Total 1 ml # Bowel Movements 4 General: Alert, Oriented X3, Cooperative, No acute distress Abdomen: Soft, No tenderness, Other (ND) Labs Laboratory Tests Test 04/06/17 17:00 04/06/17 17:40 04/06/17 19:24 04/06/17 21:11 White Blood Count 10.5 x10^3/uL (4.0-11.0) Red Blood Count 2.02 x10^6/uL (3.50-5.40) Hemoglobin 6.5 g/dL (12.0-15.5) Hematocrit 18.8 % (36.0-47.0) Mean Corpuscular Volume 93 fL (79-100) Mean Corpuscular Hemoglobin 32 pg (25-35) Mean Corpuscular Hemoglobin Concent 35 g/dL (31-37) Red Cell Distribution Width 15.4 % (11.5-14.5) Platelet Count 379 x10^3/uL (140-400) Neutrophils (%) (Auto) 76 % (31-73) Lymphocytes (%) (Auto) 18 % (24-48) Monocytes (%) (Auto) 4 % (0-9) Eosinophils (%) (Auto) 1 % (0-3) Basophils (%) (Auto) 1 % (0-3) Neutrophils # (Auto) 8.0 x10^3uL (1.8-7.7) Lymphocytes # (Auto) 1.9 x10^3/uL (1.0-4.8) Monocytes # (Auto) 0.4 x10^3/uL (0.0-1.1) Eosinophils # (Auto) 0.1 x10^3/uL (0.0-0.7) Basophils # (Auto) 0.1 x10^3/uL (0.0-0.2) Sodium Level 138 mmol/L (136-145) Potassium Level 4.9 mmol/L (3.5-5.1) Chloride Level 106 mmol/L (98-107) Carbon Dioxide Level 23 mmol/L (21-32) Anion Gap 9 (6-14) Blood Urea Nitrogen 48 mg/dL (7-20) Creatinine 0.9 mg/dL (0.6-1.0) Estimated GFR (Cockcroft-Gault) 61.5 Glucose Level 118 mg/dL (70-99) Calcium Level 8.8 mg/dL (8.5-10.1) Troponin I Quantitative 0.121 ng/mL (0.000-0.055) Stool Occult Blood Positive (NEG) Nasal Screen MRSA (PCR) Negative (Negative) Test 04/07/17 01:15 04/07/17 07:00 04/07/17 08:15 04/07/17 14:20 Hemoglobin 8.6 g/dL (12.0-15.5) 7.9 g/dL (12.0-15.5) 8.1 g/dL (12.0-15.5) Troponin I Quantitative 0.119 ng/mL (0.000-0.055) 0.137 ng/mL (0.000-0.055) 0.143 ng/mL (0.000-0.055) White Blood Count 10.1 x10^3/uL (4.0-11.0) Red Blood Count 2.54 x10^6/uL (3.50-5.40) Hematocrit 22.6 % (36.0-47.0) 24.1 % (36.0-47.0) Mean Corpuscular Volume 89 fL (79-100) Mean Corpuscular Hemoglobin 31 pg (25-35) Mean Corpuscular Hemoglobin Concent 35 g/dL (31-37) Red Cell Distribution Width 14.8 % (11.5-14.5) Platelet Count 269 x10^3/uL (140-400) Sodium Level 143 mmol/L (136-145) Potassium Level 4.2 mmol/L (3.5-5.1) Chloride Level 112 mmol/L (98-107) Carbon Dioxide Level 21 mmol/L (21-32) Anion Gap 10 (6-14) Blood Urea Nitrogen 41 mg/dL (7-20) Creatinine 0.8 mg/dL (0.6-1.0) Estimated GFR (Cockcroft-Gault) 70.5 Glucose Level 133 mg/dL (70-99) Calcium Level 7.4 mg/dL (8.5-10.1) Test 04/07/17 19:20 04/08/17 04:20 White Blood Count 11.8 x10^3/uL (4.0-11.0) 9.0 x10^3/uL (4.0-11.0) Red Blood Count 2.48 x10^6/uL (3.50-5.40) 2.87 x10^6/uL (3.50-5.40) Hemoglobin 7.5 g/dL (12.0-15.5) 8.6 g/dL (12.0-15.5) Hematocrit 21.8 % (36.0-47.0) 24.8 % (36.0-47.0) Mean Corpuscular Volume 88 fL (79-100) 87 fL (79-100) Mean Corpuscular Hemoglobin 30 pg (25-35) 30 pg (25-35) Mean Corpuscular Hemoglobin Concent 35 g/dL (31-37) 34 g/dL (31-37) Red Cell Distribution Width 18.0 % (11.5-14.5) 16.5 % (11.5-14.5) Platelet Count 209 x10^3/uL (140-400) 175 x10^3/uL (140-400) Neutrophils (%) (Auto) 72 % (31-73) Lymphocytes (%) (Auto) 22 % (24-48) Monocytes (%) (Auto) 5 % (0-9) Eosinophils (%) (Auto) 1 % (0-3) Basophils (%) (Auto) 1 % (0-3) Neutrophils # (Auto) 6.5 x10^3uL (1.8-7.7) Lymphocytes # (Auto) 1.9 x10^3/uL (1.0-4.8) Monocytes # (Auto) 0.5 x10^3/uL (0.0-1.1) Eosinophils # (Auto) 0.1 x10^3/uL (0.0-0.7) Basophils # (Auto) 0.0 x10^3/uL (0.0-0.2) Prothrombin Time 16.8 SEC (11.7-14.0) Prothromb Time International Ratio 1.5 (0.8-1.1) Sodium Level 144 mmol/L (136-145) Potassium Level 4.2 mmol/L (3.5-5.1) Chloride Level 113 mmol/L (98-107) Carbon Dioxide Level 22 mmol/L (21-32) Anion Gap 9 (6-14) Blood Urea Nitrogen 30 mg/dL (7-20) Creatinine 0.9 mg/dL (0.6-1.0) Estimated GFR (Cockcroft-Gault) 61.5 Glucose Level 102 mg/dL (70-99) Calcium Level 8.1 mg/dL (8.5-10.1) Magnesium Level 1.9 mg/dL (1.8-2.4) Laboratory Tests Test 04/07/17 14:20 04/07/17 19:20 04/08/17 04:20 Hemoglobin 8.1 g/dL (12.0-15.5) 7.5 g/dL (12.0-15.5) 8.6 g/dL (12.0-15.5) Hematocrit 24.1 % (36.0-47.0) 21.8 % (36.0-47.0) 24.8 % (36.0-47.0) White Blood Count 11.8 x10^3/uL (4.0-11.0) 9.0 x10^3/uL (4.0-11.0) Red Blood Count 2.48 x10^6/uL (3.50-5.40) 2.87 x10^6/uL (3.50-5.40) Mean Corpuscular Volume 88 fL (79-100) 87 fL (79-100) Mean Corpuscular Hemoglobin 30 pg (25-35) 30 pg (25-35) Mean Corpuscular Hemoglobin Concent 35 g/dL (31-37) 34 g/dL (31-37) Red Cell Distribution Width 18.0 % (11.5-14.5) 16.5 % (11.5-14.5) Platelet Count 209 x10^3/uL (140-400) 175 x10^3/uL (140-400) Neutrophils (%) (Auto) 72 % (31-73) Lymphocytes (%) (Auto) 22 % (24-48) Monocytes (%) (Auto) 5 % (0-9) Eosinophils (%) (Auto) 1 % (0-3) Basophils (%) (Auto) 1 % (0-3) Neutrophils # (Auto) 6.5 x10^3uL (1.8-7.7) Lymphocytes # (Auto) 1.9 x10^3/uL (1.0-4.8) Monocytes # (Auto) 0.5 x10^3/uL (0.0-1.1) Eosinophils # (Auto) 0.1 x10^3/uL (0.0-0.7) Basophils # (Auto) 0.0 x10^3/uL (0.0-0.2) Prothrombin Time 16.8 SEC (11.7-14.0) Prothromb Time International Ratio 1.5 (0.8-1.1) Sodium Level 144 mmol/L (136-145) Potassium Level 4.2 mmol/L (3.5-5.1) Chloride Level 113 mmol/L (98-107) Carbon Dioxide Level 22 mmol/L (21-32) Anion Gap 9 (6-14) Blood Urea Nitrogen 30 mg/dL (7-20) Creatinine 0.9 mg/dL (0.6-1.0) Estimated GFR (Cockcroft-Gault) 61.5 Glucose Level 102 mg/dL (70-99) Calcium Level 8.1 mg/dL (8.5-10.1) Magnesium Level 1.9 mg/dL (1.8-2.4) Problem List Problems Medical Problems: (1) Acute dyspnea Status: Acute (2) Elevated troponin Status: Acute (3) Prerenal azotemia Status: Acute (4) Severe anemia Status: Acute Assessment/Plan Bleeding DU--received blood, hgb now 8.6 INR 1.5 Hgb, pulse improved GI and IR following, consider intervention if ongoing bleeding continue PPI, transfusions as needed Problems: EUSEBIA BARRETO MD 04/08/17 1726: SURGICAL PROGRESS NOTE Assessment/Plan Pt seen and examined. Agree with Ms. Wilson's note Pt reports feeling better, no hemetesis, some dark stools abd soft appears to be improving cont supportive care no surgical plans currently Problems: BHAVIK WILSON APRN Apr 08, 2017 08:39 EUSEBIA BARRETO MD Apr 08, 2017 17:26
--- NOTE | 2017-04-08 09:12 | PDOC ---
Subjective: Subjective: Denies pain, has questions about ulcer. Objective: Objective: Per RN - had a dark stool, thought she was going home today, thirsty. Vital Signs: Vital Signs Date Time Temp Pulse Resp B/P (MAP) Pulse Ox O2 Delivery O2 Flow Rate FiO2 04/08/17 08:00 Room Air 04/08/17 08:00 98.1 69 12 132/58 (82) 96 98.1 04/07/17 15:30 2.0 Labs: Laboratory Tests Test 04/07/17 14:20 04/07/17 19:20 04/08/17 04:20 Hemoglobin 8.1 g/dL 7.5 g/dL 8.6 g/dL Hematocrit 24.1 % 21.8 % 24.8 % White Blood Count 11.8 x10^3/uL 9.0 x10^3/uL Red Blood Count 2.48 x10^6/uL 2.87 x10^6/uL Mean Corpuscular Volume 88 fL 87 fL Mean Corpuscular Hemoglobin 30 pg 30 pg Mean Corpuscular Hemoglobin Concent 35 g/dL 34 g/dL Red Cell Distribution Width 18.0 % 16.5 % Platelet Count 209 x10^3/uL 175 x10^3/uL Neutrophils (%) (Auto) 72 % Lymphocytes (%) (Auto) 22 % Monocytes (%) (Auto) 5 % Eosinophils (%) (Auto) 1 % Basophils (%) (Auto) 1 % Neutrophils # (Auto) 6.5 x10^3uL Lymphocytes # (Auto) 1.9 x10^3/uL Monocytes # (Auto) 0.5 x10^3/uL Eosinophils # (Auto) 0.1 x10^3/uL Basophils # (Auto) 0.0 x10^3/uL Prothrombin Time 16.8 SEC Prothromb Time International Ratio 1.5 Sodium Level 144 mmol/L Potassium Level 4.2 mmol/L Chloride Level 113 mmol/L Carbon Dioxide Level 22 mmol/L Anion Gap 9 Blood Urea Nitrogen 30 mg/dL Creatinine 0.9 mg/dL Estimated GFR (Cockcroft-Gault) 61.5 Glucose Level 102 mg/dL Calcium Level 8.1 mg/dL Magnesium Level 1.9 mg/dL Imaging: EGD 04/07/17: bleeding duodenal ulcer posterior wall first portion duodenum s/p 9 cc epi injection and gold probe cautery with pigmented protuberance. PE: GEN: NAD LUNGS: CTAB anteriorly HEART: RRR ABD: NABS, S/ND/NT NEURO/PSYCH: A & O 3, tearful at the end of our conversation A/P: Duodenal ulcer -s/p EGD 04/07 w/ epi/cautery -IR and surgery following Anemia -Hgb 8.6 this morning (from 7.5 last check, was 6.5 when admitted) -has transfused 4 units pRBCs total -BUN falling Hematemesis - no recurrence Melena - dark stool this morning -- Continue NPO w/ risk of re-bleeding. D/w RN, pt. Monitor labs, continue IV PPI. KERA SHEIKH Apr 08, 2017 09:12
[2017-04-08] MEDS: PANTOPRAZOLE IV PUSH 40 MG VIAL. IVP SCH ×2 (09:22→16:39)
--- NOTE | 2017-04-08 11:16 | PN ---
PROGRESS NOTES Subjective Subjective resting comfortably in bed in NAD Has EGD which showed an ulcer in the first part of duodenum She is c/o being hungry but no shortness of breath Objective Objective Vital Signs Date Time Temp Pulse Resp B/P (MAP) Pulse Ox O2 Delivery O2 Flow Rate FiO2 04/08/17 10:00 77 20 106/59 (75) 97 Room Air 04/08/17 08:00 98.1 98.1 04/07/17 15:30 2.0 Intake and Output 04/08/17 07:00 Intake Total 2594 ml Output Total 2 ml Balance 2592 ml Intake Oral 0 ml IV Total 1241 ml Blood Product 1138 ml Blood Product IV Normal Saline Flush 215 ml Output Urine Total 1 ml Stool Total 1 ml # Bowel Movements 4 Physical Exam Physical Exam Awake alert 92/107/77/18/ 98/96 CVS S1+S2 normal Chest CTA Abdomen Ssoft nontender INFORMATION TECHNOLOGY ARCHITECT grossly normal COMMENT The patient H&H ARE Stable The invasive manager recommended close observation and monitoring her H&H and transfuse to maintain her H&H ABOVE 8g/dl Diagnosis DIAGNOSIS acute blood loss anemia Bleeding duodenal ulcer CADs/p CABG HTN HLD PROBLEM LIST Problems Medical Problems: (1) Acute dyspnea Status: Acute (2) Elevated troponin Status: Acute (3) Prerenal azotemia Status: Acute (4) Severe anemia Status: Acute Assessment Assessment Problems Medical Problems: (1) Acute dyspnea Status: Acute (2) Elevated troponin Status: Acute (3) Prerenal azotemia Status: Acute (4) Severe anemia Status: Acute Comment Review of Relevant I have reviewed the following items gabino (where applicable) has been applied. Labs Laboratory Tests Test 04/06/17 17:00 04/06/17 17:40 04/06/17 19:24 04/06/17 21:11 White Blood Count 10.5 x10^3/uL (4.0-11.0) Red Blood Count 2.02 x10^6/uL (3.50-5.40) Hemoglobin 6.5 g/dL (12.0-15.5) Hematocrit 18.8 % (36.0-47.0) Mean Corpuscular Volume 93 fL (79-100) Mean Corpuscular Hemoglobin 32 pg (25-35) Mean Corpuscular Hemoglobin Concent 35 g/dL (31-37) Red Cell Distribution Width 15.4 % (11.5-14.5) Platelet Count 379 x10^3/uL (140-400) Neutrophils (%) (Auto) 76 % (31-73) Lymphocytes (%) (Auto) 18 % (24-48) Monocytes (%) (Auto) 4 % (0-9) Eosinophils (%) (Auto) 1 % (0-3) Basophils (%) (Auto) 1 % (0-3) Neutrophils # (Auto) 8.0 x10^3uL (1.8-7.7) Lymphocytes # (Auto) 1.9 x10^3/uL (1.0-4.8) Monocytes # (Auto) 0.4 x10^3/uL (0.0-1.1) Eosinophils # (Auto) 0.1 x10^3/uL (0.0-0.7) Basophils # (Auto) 0.1 x10^3/uL (0.0-0.2) Sodium Level 138 mmol/L (136-145) Potassium Level 4.9 mmol/L (3.5-5.1) Chloride Level 106 mmol/L (98-107) Carbon Dioxide Level 23 mmol/L (21-32) Anion Gap 9 (6-14) Blood Urea Nitrogen 48 mg/dL (7-20) Creatinine 0.9 mg/dL (0.6-1.0) Estimated GFR (Cockcroft-Gault) 61.5 Glucose Level 118 mg/dL (70-99) Calcium Level 8.8 mg/dL (8.5-10.1) Troponin I Quantitative 0.121 ng/mL (0.000-0.055) Stool Occult Blood Positive (NEG) Nasal Screen MRSA (PCR) Negative (Negative) Test 04/07/17 01:15 04/07/17 07:00 04/07/17 08:15 04/07/17 14:20 Hemoglobin 8.6 g/dL (12.0-15.5) 7.9 g/dL (12.0-15.5) 8.1 g/dL (12.0-15.5) Troponin I Quantitative 0.119 ng/mL (0.000-0.055) 0.137 ng/mL (0.000-0.055) 0.143 ng/mL (0.000-0.055) White Blood Count 10.1 x10^3/uL (4.0-11.0) Red Blood Count 2.54 x10^6/uL (3.50-5.40) Hematocrit 22.6 % (36.0-47.0) 24.1 % (36.0-47.0) Mean Corpuscular Volume 89 fL (79-100) Mean Corpuscular Hemoglobin 31 pg (25-35) Mean Corpuscular Hemoglobin Concent 35 g/dL (31-37) Red Cell Distribution Width 14.8 % (11.5-14.5) Platelet Count 269 x10^3/uL (140-400) Sodium Level 143 mmol/L (136-145) Potassium Level 4.2 mmol/L (3.5-5.1) Chloride Level 112 mmol/L (98-107) Carbon Dioxide Level 21 mmol/L (21-32) Anion Gap 10 (6-14) Blood Urea Nitrogen 41 mg/dL (7-20) Creatinine 0.8 mg/dL (0.6-1.0) Estimated GFR (Cockcroft-Gault) 70.5 Glucose Level 133 mg/dL (70-99) Calcium Level 7.4 mg/dL (8.5-10.1) Test 04/07/17 19:20 04/08/17 04:20 White Blood Count 11.8 x10^3/uL (4.0-11.0) 9.0 x10^3/uL (4.0-11.0) Red Blood Count 2.48 x10^6/uL (3.50-5.40) 2.87 x10^6/uL (3.50-5.40) Hemoglobin 7.5 g/dL (12.0-15.5) 8.6 g/dL (12.0-15.5) Hematocrit 21.8 % (36.0-47.0) 24.8 % (36.0-47.0) Mean Corpuscular Volume 88 fL (79-100) 87 fL (79-100) Mean Corpuscular Hemoglobin 30 pg (25-35) 30 pg (25-35) Mean Corpuscular Hemoglobin Concent 35 g/dL (31-37) 34 g/dL (31-37) Red Cell Distribution Width 18.0 % (11.5-14.5) 16.5 % (11.5-14.5) Platelet Count 209 x10^3/uL (140-400) 175 x10^3/uL (140-400) Neutrophils (%) (Auto) 72 % (31-73) Lymphocytes (%) (Auto) 22 % (24-48) Monocytes (%) (Auto) 5 % (0-9) Eosinophils (%) (Auto) 1 % (0-3) Basophils (%) (Auto) 1 % (0-3) Neutrophils # (Auto) 6.5 x10^3uL (1.8-7.7) Lymphocytes # (Auto) 1.9 x10^3/uL (1.0-4.8) Monocytes # (Auto) 0.5 x10^3/uL (0.0-1.1) Eosinophils # (Auto) 0.1 x10^3/uL (0.0-0.7) Basophils # (Auto) 0.0 x10^3/uL (0.0-0.2) Prothrombin Time 16.8 SEC (11.7-14.0) Prothromb Time International Ratio 1.5 (0.8-1.1) Sodium Level 144 mmol/L (136-145) Potassium Level 4.2 mmol/L (3.5-5.1) Chloride Level 113 mmol/L (98-107) Carbon Dioxide Level 22 mmol/L (21-32) Anion Gap 9 (6-14) Blood Urea Nitrogen 30 mg/dL (7-20) Creatinine 0.9 mg/dL (0.6-1.0) Estimated GFR (Cockcroft-Gault) 61.5 Glucose Level 102 mg/dL (70-99) Calcium Level 8.1 mg/dL (8.5-10.1) Magnesium Level 1.9 mg/dL (1.8-2.4) Laboratory Tests Test 04/07/17 14:20 04/07/17 19:20 04/08/17 04:20 Hemoglobin 8.1 g/dL (12.0-15.5) 7.5 g/dL (12.0-15.5) 8.6 g/dL (12.0-15.5) Hematocrit 24.1 % (36.0-47.0) 21.8 % (36.0-47.0) 24.8 % (36.0-47.0) White Blood Count 11.8 x10^3/uL (4.0-11.0) 9.0 x10^3/uL (4.0-11.0) Red Blood Count 2.48 x10^6/uL (3.50-5.40) 2.87 x10^6/uL (3.50-5.40) Mean Corpuscular Volume 88 fL (79-100) 87 fL (79-100) Mean Corpuscular Hemoglobin 30 pg (25-35) 30 pg (25-35) Mean Corpuscular Hemoglobin Concent 35 g/dL (31-37) 34 g/dL (31-37) Red Cell Distribution Width 18.0 % (11.5-14.5) 16.5 % (11.5-14.5) Platelet Count 209 x10^3/uL (140-400) 175 x10^3/uL (140-400) Neutrophils (%) (Auto) 72 % (31-73) Lymphocytes (%) (Auto) 22 % (24-48) Monocytes (%) (Auto) 5 % (0-9) Eosinophils (%) (Auto) 1 % (0-3) Basophils (%) (Auto) 1 % (0-3) Neutrophils # (Auto) 6.5 x10^3uL (1.8-7.7) Lymphocytes # (Auto) 1.9 x10^3/uL (1.0-4.8) Monocytes # (Auto) 0.5 x10^3/uL (0.0-1.1) Eosinophils # (Auto) 0.1 x10^3/uL (0.0-0.7) Basophils # (Auto) 0.0 x10^3/uL (0.0-0.2) Prothrombin Time 16.8 SEC (11.7-14.0) Prothromb Time International Ratio 1.5 (0.8-1.1) Sodium Level 144 mmol/L (136-145) Potassium Level 4.2 mmol/L (3.5-5.1) Chloride Level 113 mmol/L (98-107) Carbon Dioxide Level 22 mmol/L (21-32) Anion Gap 9 (6-14) Blood Urea Nitrogen 30 mg/dL (7-20) Creatinine 0.9 mg/dL (0.6-1.0) Estimated GFR (Cockcroft-Gault) 61.5 Glucose Level 102 mg/dL (70-99) Calcium Level 8.1 mg/dL (8.5-10.1) Magnesium Level 1.9 mg/dL (1.8-2.4) Medications Current Medications Sodium Chloride 1,000 ml @ 1,000 mls/hr 1X ONCE IV Last administered on 17:40; Start 04/06/17 at 17:30; Stop 04/06/17 at 18:29; Status DC Iohexol (Omnipaque 300 Mg/ml) 75 ml 1X ONCE IV Last administered on 04/06/17 18:00; Start 04/06/17 at 18:00; Stop 04/06/17 at 18:01; Status DC Info (Do NOT chart on this entry -- for MONITORING) 1 each PRN DAILY PRN MC SEE COMMENTS; Start 04/06/17 at 17:45; Stop 04/08/17 at 17:44 Sodium Chloride 1,000 ml @ 1,000 mls/hr 1X ONCE IV Last administered on 23:37; Start 04/06/17 at 19:00; Stop 04/06/17 at 19:59; Status DC Famotidine (Pepcid) 20 mg QHS IVP Last administered on 04/06/17 23:12; Start at 22:00; Stop 04/07/17 at 07:13; Status DC Sodium Chloride 1,000 ml @ 100 mls/hr Q10H IV Last administered on 04/07/17 21 :53; Start 04/06/17 at 22:00 Ondansetron HCl (Zofran) 4 mg PRN Q4HRS PRN IV NAUSEA/VOMITING Last administered on 04/07/17 14:23; Start 04/07/17 at 07:00 Pantoprazole Sodium (Protonix Vial) 40 mg BIDAC IVP Last administered on 09:22; Start 04/07/17 at 07:30 Midazolam HCl (Versed) 5 mg STK-MED ONCE .ROUTE ; Start 04/07/17 at 12:42; Stop 04/07/17 at 12:43; Status DC Fentanyl Citrate (Fentanyl 2ml Vial) 100 mcg STK-MED ONCE .ROUTE ; Start at 12:43; Stop 04/07/17 at 12:44; Status DC Midazolam HCl (Versed) 5 mg STK-MED ONCE IV Last administered on 04/07/17 13:40 ; Start 04/07/17 at 13:40; Stop 04/07/17 at 13:58; Status DC Fentanyl Citrate (Fentanyl 2ml Vial) 100 mcg STK-MED ONCE IV Last administered on 04/07/17 13:41; Start 04/07/17 at 13:41; Stop 04/07/17 at 13:58; Status DC Midazolam HCl (Versed) 5 mg STK-MED ONCE IV Last administered on 04/07/17 13:42 ; Start 04/07/17 at 13:42; Stop 04/07/17 at 13:58; Status DC Epinephrine HCl (Adrenalin) 1 mg STK-MED ONCE .ROUTE ; Start 04/07/17 at 13:48; Stop 04/07/17 at 13:49; Status DC Midazolam HCl (Versed) 5 mg STK-MED ONCE IV Last administered on 04/07/17 13:43 ; Start 04/07/17 at 13:43; Stop 04/07/17 at 13:58; Status DC Midazolam HCl (Versed) 5 mg STK-MED ONCE IV Last administered on 04/07/17 13:44 ; Start 04/07/17 at 13:44; Stop 04/07/17 at 14:05; Status DC Epinephrine HCl (Adrenalin) 1 mg STK-MED ONCE SQ Last administered on 04/07/17 13:46; Start 04/07/17 at 13:46; Stop 04/07/17 at 14:05; Status DC Active Scripts Active Reported Senokot-S Tablet (Sennosides/Docusate Sodium) 1 Each Tablet 2 Tab PO BID Metoprolol Tartrate 25 Mg Tablet 12.5 Mg PO BID [place] 10-325 Tablet (Acetaminophen/Hydrocodone Bitart) 1 Each Tablet 1-2 Tab PO Q4-6HRS Ferrous Sulfate 325 Mg Tablet 1 Tab PO TID Vitamin D3 (Cholecalciferol (Vitamin D3)) 1,000 Unit Tablet 1 Tab PO DAILY Atorvastatin Calcium 40 Mg Tablet 40 Mg PO HS Aspirin 325 Mg Tablet 1 Tab PO DAILY Vitals/I & O Vital Sign - Last 24 Hours 04/07/17 04/07/17 04/07/17 04/07/17 11:46 12:00 12:00 12:30 Temp 98.7 98.8 98.8 98.7 98.8 98.8 Pulse 96 102 96 Resp 20 16 20 B/P (MAP) 129/60 115/66 (82) 121/69 Pulse Ox 98 O2 Delivery Room Air Room Air 04/07/17 04/07/17 04/07/17 04/07/17 12:50 12:53 13:00 14:00 Pulse 97 97 78 Resp 18 19 24 B/P (MAP) 104/60 (75) 143/77 (99) Pulse Ox 99 100 100 O2 Delivery Room Air Room Air Nasal Cannula O2 Flow Rate 6.0 04/07/17 04/07/17 04/07/17 04/07/17 14:06 14:15 14:30 14:45 Pulse 88 78 76 81 Resp 16 25 20 16 B/P (MAP) 131/73 100/63 (75) 131/99 (110) 131/62 (85) Pulse Ox 100 100 100 96 O2 Delivery Nasal Cannula Nasal Cannula Nasal Cannula Nasal Cannula O2 Flow Rate 2 6.0 2.0 2.0 04/07/17 04/07/17 04/07/17 04/07/17 15:00 15:30 16:00 16:00 Pulse 87 97 92 Resp 15 20 16 B/P (MAP) 145/61 (89) 133/59 (83) 136/66 (89) Pulse Ox 98 99 96 O2 Delivery Nasal Cannula Nasal Cannula Room Air Room Air O2 Flow Rate 2.0 2.0 04/07/17 04/07/17 04/07/17 04/07/17 17:00 18:00 19:00 20:00 Temp 98.5 98.5 Pulse 90 88 92 Resp 20 14 22 B/P (MAP) 114/61 (78) 96/59 (71) 83/57 (66) Pulse Ox 96 96 97 O2 Delivery Room Air Room Air Room Air Room Air 04/07/17 04/07/17 04/07/17 04/07/17 20:00 21:00 22:00 23:30 Pulse 92 96 90 78 Resp 20 20 20 13 B/P (MAP) 120/55 (76) 81/55 (64) 117/56 (76) 102/55 (71) Pulse Ox 96 96 96 97 O2 Delivery Room Air Room Air Room Air Room Air 04/08/17 04/08/17 04/08/17 04/08/17 00:00 00:00 00:05 00:08 Temp 98.4 98.4 98.4 98.4 Pulse 80 82 Resp 14 16 B/P (MAP) 102/55 103/59 (74) Pulse Ox 97 O2 Delivery Room Air Room Air 04/08/17 04/08/17 04/08/17 04/08/17 01:00 02:00 03:00 04:00 Pulse 76 78 78 73 Resp 14 13 14 17 B/P (MAP) 90/50 (63) 80/50 (60) 99/57 (71) 136/49 (78) Pulse Ox 96 97 97 97 O2 Delivery Room Air Room Air Room Air Room Air 04/08/17 04/08/17 04/08/17 04/08/17 04:00 04:10 05:22 06:04 Temp 98.2 98.2 Pulse 75 75 Resp 18 20 B/P (MAP) 112/59 (76) 136/59 (84) Pulse Ox 97 97 O2 Delivery Room Air Room Air Room Air 04/08/17 04/08/17 04/08/17 04/08/17 07:00 08:00 08:00 09:00 Temp 98.1 98.1 Pulse 72 69 78 Resp 23 12 19 B/P (MAP) 119/59 (79) 132/58 (82) 115/62 (79) Pulse Ox 96 96 95 O2 Delivery Room Air Room Air Room Air Room Air 04/08/17 10:00 Pulse 77 Resp 20 B/P (MAP) 106/59 (75) Pulse Ox 97 O2 Delivery Room Air Intake and Output 04/07/17 04/07/17 04/08/17 15:00 23:00 07:00 Intake Total 550 ml 970 ml 1074 ml Output Total 2 ml Balance 550 ml 970 ml 1072 ml RONALD TORRES MD Apr 08, 2017 11:16
--- NOTE | 2017-04-08 13:07 | PDOC ---
PROGRESS NOTES Subjective Subjective Ms Lee is a 71 yr old female who was admitted for severe anemia. She currently reports no chest pain or shortness of breath. Objective Objective Vital Signs Date Time Temp Pulse Resp B/P (MAP) Pulse Ox O2 Delivery O2 Flow Rate FiO2 04/08/17 12:00 98.3 76 17 107/61 (76) 97 Room Air 98.3 04/07/17 15:30 2.0 Intake and Output 04/08/17 07:00 Intake Total 2594 ml Output Total 2 ml Balance 2592 ml Intake Oral 0 ml IV Total 1241 ml Blood Product 1138 ml Blood Product IV Normal Saline Flush 215 ml Output Urine Total 1 ml Stool Total 1 ml # Bowel Movements 4 Physical Exam Heart: Regular rate (and rhythm), Other (holosystolic murmur heard at 2nd ICS right sternum and at cardiac apex) Extremities: No edema, Normal pulses (2/4 radial b/l) General: Alert, No acute distress Lungs: Clear to auscultation (b/l) Assessment Assessment Ms Lee's symptoms have improved since cauterization of the duodenal ulcer and transfusions. Echo results not ready yet to assess murmur Problems Medical Problems: (1) Acute dyspnea Status: Acute (2) Elevated troponin Status: Acute (3) Prerenal azotemia Status: Acute (4) Severe anemia Status: Acute Comment Review of Relevant I have reviewed the following items gabino (where applicable) has been applied. Labs Laboratory Tests Test 04/06/17 17:00 04/06/17 17:40 04/06/17 19:24 04/06/17 21:11 White Blood Count 10.5 x10^3/uL (4.0-11.0) Red Blood Count 2.02 x10^6/uL (3.50-5.40) Hemoglobin 6.5 g/dL (12.0-15.5) Hematocrit 18.8 % (36.0-47.0) Mean Corpuscular Volume 93 fL (79-100) Mean Corpuscular Hemoglobin 32 pg (25-35) Mean Corpuscular Hemoglobin Concent 35 g/dL (31-37) Red Cell Distribution Width 15.4 % (11.5-14.5) Platelet Count 379 x10^3/uL (140-400) Neutrophils (%) (Auto) 76 % (31-73) Lymphocytes (%) (Auto) 18 % (24-48) Monocytes (%) (Auto) 4 % (0-9) Eosinophils (%) (Auto) 1 % (0-3) Basophils (%) (Auto) 1 % (0-3) Neutrophils # (Auto) 8.0 x10^3uL (1.8-7.7) Lymphocytes # (Auto) 1.9 x10^3/uL (1.0-4.8) Monocytes # (Auto) 0.4 x10^3/uL (0.0-1.1) Eosinophils # (Auto) 0.1 x10^3/uL (0.0-0.7) Basophils # (Auto) 0.1 x10^3/uL (0.0-0.2) Sodium Level 138 mmol/L (136-145) Potassium Level 4.9 mmol/L (3.5-5.1) Chloride Level 106 mmol/L (98-107) Carbon Dioxide Level 23 mmol/L (21-32) Anion Gap 9 (6-14) Blood Urea Nitrogen 48 mg/dL (7-20) Creatinine 0.9 mg/dL (0.6-1.0) Estimated GFR (Cockcroft-Gault) 61.5 Glucose Level 118 mg/dL (70-99) Calcium Level 8.8 mg/dL (8.5-10.1) Troponin I Quantitative 0.121 ng/mL (0.000-0.055) Stool Occult Blood Positive (NEG) Nasal Screen MRSA (PCR) Negative (Negative) Test 04/07/17 01:15 04/07/17 07:00 04/07/17 08:15 04/07/17 14:20 Hemoglobin 8.6 g/dL (12.0-15.5) 7.9 g/dL (12.0-15.5) 8.1 g/dL (12.0-15.5) Troponin I Quantitative 0.119 ng/mL (0.000-0.055) 0.137 ng/mL (0.000-0.055) 0.143 ng/mL (0.000-0.055) White Blood Count 10.1 x10^3/uL (4.0-11.0) Red Blood Count 2.54 x10^6/uL (3.50-5.40) Hematocrit 22.6 % (36.0-47.0) 24.1 % (36.0-47.0) Mean Corpuscular Volume 89 fL (79-100) Mean Corpuscular Hemoglobin 31 pg (25-35) Mean Corpuscular Hemoglobin Concent 35 g/dL (31-37) Red Cell Distribution Width 14.8 % (11.5-14.5) Platelet Count 269 x10^3/uL (140-400) Sodium Level 143 mmol/L (136-145) Potassium Level 4.2 mmol/L (3.5-5.1) Chloride Level 112 mmol/L (98-107) Carbon Dioxide Level 21 mmol/L (21-32) Anion Gap 10 (6-14) Blood Urea Nitrogen 41 mg/dL (7-20) Creatinine 0.8 mg/dL (0.6-1.0) Estimated GFR (Cockcroft-Gault) 70.5 Glucose Level 133 mg/dL (70-99) Calcium Level 7.4 mg/dL (8.5-10.1) Test 04/07/17 19:20 04/08/17 04:20 White Blood Count 11.8 x10^3/uL (4.0-11.0) 9.0 x10^3/uL (4.0-11.0) Red Blood Count 2.48 x10^6/uL (3.50-5.40) 2.87 x10^6/uL (3.50-5.40) Hemoglobin 7.5 g/dL (12.0-15.5) 8.6 g/dL (12.0-15.5) Hematocrit 21.8 % (36.0-47.0) 24.8 % (36.0-47.0) Mean Corpuscular Volume 88 fL (79-100) 87 fL (79-100) Mean Corpuscular Hemoglobin 30 pg (25-35) 30 pg (25-35) Mean Corpuscular Hemoglobin Concent 35 g/dL (31-37) 34 g/dL (31-37) Red Cell Distribution Width 18.0 % (11.5-14.5) 16.5 % (11.5-14.5) Platelet Count 209 x10^3/uL (140-400) 175 x10^3/uL (140-400) Neutrophils (%) (Auto) 72 % (31-73) Lymphocytes (%) (Auto) 22 % (24-48) Monocytes (%) (Auto) 5 % (0-9) Eosinophils (%) (Auto) 1 % (0-3) Basophils (%) (Auto) 1 % (0-3) Neutrophils # (Auto) 6.5 x10^3uL (1.8-7.7) Lymphocytes # (Auto) 1.9 x10^3/uL (1.0-4.8) Monocytes # (Auto) 0.5 x10^3/uL (0.0-1.1) Eosinophils # (Auto) 0.1 x10^3/uL (0.0-0.7) Basophils # (Auto) 0.0 x10^3/uL (0.0-0.2) Prothrombin Time 16.8 SEC (11.7-14.0) Prothromb Time International Ratio 1.5 (0.8-1.1) Sodium Level 144 mmol/L (136-145) Potassium Level 4.2 mmol/L (3.5-5.1) Chloride Level 113 mmol/L (98-107) Carbon Dioxide Level 22 mmol/L (21-32) Anion Gap 9 (6-14) Blood Urea Nitrogen 30 mg/dL (7-20) Creatinine 0.9 mg/dL (0.6-1.0) Estimated GFR (Cockcroft-Gault) 61.5 Glucose Level 102 mg/dL (70-99) Calcium Level 8.1 mg/dL (8.5-10.1) Magnesium Level 1.9 mg/dL (1.8-2.4) Laboratory Tests Test 04/07/17 14:20 04/07/17 19:20 04/08/17 04:20 Hemoglobin 8.1 g/dL (12.0-15.5) 7.5 g/dL (12.0-15.5) 8.6 g/dL (12.0-15.5) Hematocrit 24.1 % (36.0-47.0) 21.8 % (36.0-47.0) 24.8 % (36.0-47.0) White Blood Count 11.8 x10^3/uL (4.0-11.0) 9.0 x10^3/uL (4.0-11.0) Red Blood Count 2.48 x10^6/uL (3.50-5.40) 2.87 x10^6/uL (3.50-5.40) Mean Corpuscular Volume 88 fL (79-100) 87 fL (79-100) Mean Corpuscular Hemoglobin 30 pg (25-35) 30 pg (25-35) Mean Corpuscular Hemoglobin Concent 35 g/dL (31-37) 34 g/dL (31-37) Red Cell Distribution Width 18.0 % (11.5-14.5) 16.5 % (11.5-14.5) Platelet Count 209 x10^3/uL (140-400) 175 x10^3/uL (140-400) Neutrophils (%) (Auto) 72 % (31-73) Lymphocytes (%) (Auto) 22 % (24-48) Monocytes (%) (Auto) 5 % (0-9) Eosinophils (%) (Auto) 1 % (0-3) Basophils (%) (Auto) 1 % (0-3) Neutrophils # (Auto) 6.5 x10^3uL (1.8-7.7) Lymphocytes # (Auto) 1.9 x10^3/uL (1.0-4.8) Monocytes # (Auto) 0.5 x10^3/uL (0.0-1.1) Eosinophils # (Auto) 0.1 x10^3/uL (0.0-0.7) Basophils # (Auto) 0.0 x10^3/uL (0.0-0.2) Prothrombin Time 16.8 SEC (11.7-14.0) Prothromb Time International Ratio 1.5 (0.8-1.1) Sodium Level 144 mmol/L (136-145) Potassium Level 4.2 mmol/L (3.5-5.1) Chloride Level 113 mmol/L (98-107) Carbon Dioxide Level 22 mmol/L (21-32) Anion Gap 9 (6-14) Blood Urea Nitrogen 30 mg/dL (7-20) Creatinine 0.9 mg/dL (0.6-1.0) Estimated GFR (Cockcroft-Gault) 61.5 Glucose Level 102 mg/dL (70-99) Calcium Level 8.1 mg/dL (8.5-10.1) Magnesium Level 1.9 mg/dL (1.8-2.4) Medications Current Medications Sodium Chloride 1,000 ml @ 1,000 mls/hr 1X ONCE IV Last administered on 17:40; Start 04/06/17 at 17:30; Stop 04/06/17 at 18:29; Status DC Iohexol (Omnipaque 300 Mg/ml) 75 ml 1X ONCE IV Last administered on 04/06/17 18:00; Start 04/06/17 at 18:00; Stop 04/06/17 at 18:01; Status DC Info (Do NOT chart on this entry -- for MONITORING) 1 each PRN DAILY PRN MC SEE COMMENTS; Start 04/06/17 at 17:45; Stop 04/08/17 at 17:44 Sodium Chloride 1,000 ml @ 1,000 mls/hr 1X ONCE IV Last administered on 23:37; Start 04/06/17 at 19:00; Stop 04/06/17 at 19:59; Status DC Famotidine (Pepcid) 20 mg QHS IVP Last administered on 04/06/17 23:12; Start at 22:00; Stop 04/07/17 at 07:13; Status DC Sodium Chloride 1,000 ml @ 100 mls/hr Q10H IV Last administered on 04/07/17 21 :53; Start 04/06/17 at 22:00 Ondansetron HCl (Zofran) 4 mg PRN Q4HRS PRN IV NAUSEA/VOMITING Last administered on 04/07/17 14:23; Start 04/07/17 at 07:00 Pantoprazole Sodium (Protonix Vial) 40 mg BIDAC IVP Last administered on 09:22; Start 04/07/17 at 07:30 Midazolam HCl (Versed) 5 mg STK-MED ONCE .ROUTE ; Start 04/07/17 at 12:42; Stop 04/07/17 at 12:43; Status DC Fentanyl Citrate (Fentanyl 2ml Vial) 100 mcg STK-MED ONCE .ROUTE ; Start at 12:43; Stop 04/07/17 at 12:44; Status DC Midazolam HCl (Versed) 5 mg STK-MED ONCE IV Last administered on 04/07/17 13:40 ; Start 04/07/17 at 13:40; Stop 04/07/17 at 13:58; Status DC Fentanyl Citrate (Fentanyl 2ml Vial) 100 mcg STK-MED ONCE IV Last administered on 04/07/17 13:41; Start 04/07/17 at 13:41; Stop 04/07/17 at 13:58; Status DC Midazolam HCl (Versed) 5 mg STK-MED ONCE IV Last administered on 04/07/17 13:42 ; Start 04/07/17 at 13:42; Stop 04/07/17 at 13:58; Status DC Epinephrine HCl (Adrenalin) 1 mg STK-MED ONCE .ROUTE ; Start 04/07/17 at 13:48; Stop 04/07/17 at 13:49; Status DC Midazolam HCl (Versed) 5 mg STK-MED ONCE IV Last administered on 04/07/17 13:43 ; Start 04/07/17 at 13:43; Stop 04/07/17 at 13:58; Status DC Midazolam HCl (Versed) 5 mg STK-MED ONCE IV Last administered on 04/07/17 13:44 ; Start 04/07/17 at 13:44; Stop 04/07/17 at 14:05; Status DC Epinephrine HCl (Adrenalin) 1 mg STK-MED ONCE SQ Last administered on 04/07/17 13:46; Start 04/07/17 at 13:46; Stop 04/07/17 at 14:05; Status DC Active Scripts Active Reported Senokot-S Tablet (Sennosides/Docusate Sodium) 1 Each Tablet 2 Tab PO BID Metoprolol Tartrate 25 Mg Tablet 12.5 Mg PO BID [place] 10-325 Tablet (Acetaminophen/Hydrocodone Bitart) 1 Each Tablet 1-2 Tab PO Q4-6HRS Ferrous Sulfate 325 Mg Tablet 1 Tab PO TID Vitamin D3 (Cholecalciferol (Vitamin D3)) 1,000 Unit Tablet 1 Tab PO DAILY Atorvastatin Calcium 40 Mg Tablet 40 Mg PO HS Aspirin 325 Mg Tablet 1 Tab PO DAILY Vitals/I & O Vital Sign - Last 24 Hours 7/06/1604/07/17 04/07/17 04/07/17 13:00 14:00 14:06 14:15 Pulse 97 78 88 78 Resp 19 24 16 25 B/P (MAP) 104/60 (75) 143/77 (99) 131/73 100/63 (75) Pulse Ox 100 100 100 100 O2 Delivery Room Air Nasal Cannula Nasal Cannula Nasal Cannula O2 Flow Rate 6.0 2 6.0 04/07/17 04/07/17 04/07/17 04/07/17 14:30 14:45 15:00 15:30 Pulse 76 81 87 97 Resp 20 16 15 20 B/P (MAP) 131/99 (110) 131/62 (85) 145/61 (89) 133/59 (83) Pulse Ox 100 96 98 99 O2 Delivery Nasal Cannula Nasal Cannula Nasal Cannula Nasal Cannula O2 Flow Rate 2.0 2.0 2.0 2.0 04/07/17 04/07/17 04/07/17 04/07/17 16:00 16:00 17:00 18:00 Pulse 92 90 88 Resp 16 20 14 B/P (MAP) 136/66 (89) 114/61 (78) 96/59 (71) Pulse Ox 96 96 96 O2 Delivery Room Air Room Air Room Air Room Air 04/07/17 04/07/17 04/07/17 04/07/17 19:00 20:00 20:00 21:00 Temp 98.5 98.5 Pulse 92 92 96 Resp 22 20 20 B/P (MAP) 83/57 (66) 120/55 (76) 81/55 (64) Pulse Ox 97 96 96 O2 Delivery Room Air Room Air Room Air Room Air 04/07/17 04/07/17 04/08/17 04/08/17 22:00 23:30 00:00 00:00 Temp 98.4 98.4 Pulse 90 78 80 Resp 20 13 14 B/P (MAP) 117/56 (76) 102/55 (71) 102/55 Pulse Ox 96 97 O2 Delivery Room Air Room Air Room Air 04/08/17 04/08/17 04/08/17 04/08/17 00:05 00:08 01:00 02:00 Temp 98.4 98.4 Pulse 82 76 78 Resp 16 14 13 B/P (MAP) 103/59 (74) 90/50 (63) 80/50 (60) Pulse Ox 97 96 97 O2 Delivery Room Air Room Air Room Air 04/08/17 04/08/17 04/08/17 04/08/17 03:00 04:00 04:00 04:10 Temp 98.2 98.2 Pulse 78 73 Resp 14 17 B/P (MAP) 99/57 (71) 136/49 (78) Pulse Ox 97 97 O2 Delivery Room Air Room Air Room Air 04/08/17 04/08/17 04/08/17 04/08/17 05:22 06:04 07:00 08:00 Temp 98.1 98.1 Pulse 75 75 72 69 Resp 18 20 23 12 B/P (MAP) 112/59 (76) 136/59 (84) 119/59 (79) 132/58 (82) Pulse Ox 97 97 96 96 O2 Delivery Room Air Room Air Room Air Room Air 04/08/17 04/08/17 04/08/17 04/08/17 08:00 09:00 10:00 11:00 Pulse 78 77 80 Resp 19 20 19 B/P (MAP) 115/62 (79) 106/59 (75) 107/52 (70) Pulse Ox 95 97 97 O2 Delivery Room Air Room Air Room Air Room Air 04/08/17 04/08/17 12:00 12:00 Temp 98.3 98.3 Pulse 76 Resp 17 B/P (MAP) 107/61 (76) Pulse Ox 97 O2 Delivery Room Air Room Air Intake and Output 04/07/17 04/07/17 04/08/17 15:00 23:00 07:00 Intake Total 550 ml 970 ml 1074 ml Output Total 2 ml Balance 550 ml 970 ml 1072 ml EMILY AQUINO MD Apr 08, 2017 13:07
--- NOTE | 2017-04-08 19:05 | CARD ---
APPROVED REPORT EXAM: Two-dimensional and M-mode echocardiogram with Doppler and color Doppler. Other Information Quality : GoodHR: 77bpm Rhythm : NSR INDICATION Systolic murmur Echo Enhancing Agent Indication: Rule Out Septal Defect Agent/Amount Used: Agitated Saline 8mL Surgery/Intervention Status/Post Aortic Valve Replacement: Bioprosthetic CABG: S/P mitral valve repair, Hx. of septal defect, Hx. of septal myectomy 2D DIMENSIONS RVDd3.4 (2.9-3.5cm)Left Atrium(2D)4.5 (1.6-4.0cm) IVSd1.2 (0.7-1.1cm)Aortic Root(2D)3.0 (2.0-3.7cm) LVDd4.5 (3.9-5.9cm)LVOT Diameter2.2 (1.8-2.4cm) PWd1.3 (0.7-1.1cm)LVDs3.2 (2.5-4.0cm) FS (%) 28.4 %SV51.3 ml LVEF(%)55.0 (>50%) Aortic Valve AoV Peak Vinay.340.4cm/sAoV VTI72.9cm AO Peak GR.46.3mmHgLVOT Peak Vinay.132.2cm/s AO Mean GR.26mmHgAVA (VMAX)1.53cm2 Mitral Valve MV E Qtjhddef533.8cm/sMV E Peak Gr.14mmHg MV DECEL [id number] A Silqgoom174.6cm/s MV E Mean Gr.6mmHgE/A Ratio0.6 MV A [id number] Pulmonary Valve PV Peak Ntxcfsns628.9cm/s Tricuspid Valve TR P. Agxgkzjn307nv/sRAP [id number] TR Peak Gr.[id number] Pulmonary Vein S1 Vsnqofpl75.0cm/sD2 Vceztdtj92.7cm/s PVa [id number] LEFT VENTRICLE The left ventricle is normal size. There is mild concentric left ventricular hypertrophy. The echo fi ndings are consistent with left ventricular outflow obstruction. Resting pressures across the gradien t are 48mmHg and increase to 71mmHg with Valsalva maneuver. This pt has a bioprosthetic aortic valve and the doppler findings may be due to that The Ejection Fraction is 55%. There is normal LV segmenta l wall motion. Transmitral Doppler flow pattern is Grade I-abnormal relaxation pattern. There is no v entricular septal defect visualized. RIGHT VENTRICLE The right ventricle is normal size. There is normal right ventricular wall thickness. The right ventr icular systolic function is normal. ATRIA The left atrium is severely dilated. The right atrium size is normal. The interatrial septum is intac t with no evidence for an atrial septal defect or patent foramen ovale as noted on 2-D or Doppler michelle ging. Injection of bubbles documented no interatrial shunt. AORTIC VALVE The aortic valve is not well visualized. There is a bioprosthetic aortic valve prosthesis. Doppler an d Color Flow revealed no significant aortic regurgitation. Calculated aortic valve area is 1.3 to 1.5 cm2 with maximum pressure gradient of 46 mmHg and mean pressure gradient of 26 mmHg.The values (JUAN) obtained may be exaggerated due to LVOT obstruction/ pressure gradients. MITRAL VALVE Mitral annular calcification is moderate. The mitral valve leaflets are thickened and calcified. Ther e is no evidence of mitral valve prolapse. There is mild mitral valve stenosis. Calculated mitral merissa ve area is 2 cm2 with maximum pressure gradient of 14 mmHg and mean pressure gradient of 5.5 mmHg. Do ppler and Color Flow revealed trace mitral regurgitation. TRICUSPID VALVE Doppler and Color Flow revealed trace tricuspid regurgitation. The pulmonary artery systolic pressure is estimated at 38 mmHg. There is mild pulmonary hypertension. PULMONIC VALVE The pulmonary valve is not well visualized but appears to opens well. Doppler and Color Flow revealed mild pulmonic valvular regurgitation. There is no pulmonic valvular stenosis by spectral Doppler. GREAT VESSELS The aortic root is normal in size. The ascending aorta is normal in size. The pulmonary artery is nor mal. The IVC is normal in size and collapses >50% with inspiration. PERICARDIAL EFFUSION There is no evidence of significant pericardial effusion. Critical Notification Critical Value: No <Conclusion> The Ejection Fraction is 55%. There is mild concentric left ventricular hypertrophy. The echo findings are consistent with left ventricular outflow obstruction. Resting pressures across the gradient are 48mmHg and increase to 71mmHg with Valsalva maneuver. This pt has a bioprosthetic a ortic valve and the doppler findings may be due to that The Ejection Fraction is 55%. Transmitral Doppler flow pattern is Grade I-abnormal relaxation pattern. The left atrium is severely dilated. The right atrium size is normal. The interatrial septum is intact with no evidence for an atrial septal defect or patent foramen ovale as noted on 2-D or Doppler imaging. Injection of bubbles documented no interatrial shunt. Calculated aortic valve area is 1.3 to 1.5 cm2 with maximum pressure gradient of 46 mmHg and mean p ressure gradient of 26 mmHg.The values (JUAN) obtained may be exaggerated due to LVOT obstruction/ pre ssure gradients. The aortic valve is not well visualized. There is a bioprosthetic aortic valve prosthesis. There is mild mitral valve stenosis. Calculated mitral valve area is 2 cm2 with maximum pressure gradient of 14 mmHg and mean pressure gr adient of 5.5 mmHg. Mitral annular calcification is moderate. The mitral valve leaflets are thickened and calcified. Doppler and Color Flow revealed trace mitral regurgitation. Doppler and Color Flow revealed trace tricuspid regurgitation. The pulmonary artery systolic pressure is estimated at 38 mmHg. There is mild pulmonary hypertension. The pulmonary valve is not well visualized but appears to opens well. Doppler and Color Flow revealed mild pulmonic valvular regurgitation. There is no pulmonic valvular stenosis by spectral Doppler. There is no evidence of significant pericardial effusion.
[2017-04-09] VITALS (16 sets, daily range): BP systolic 103–146; BP diastolic 44–77
[2017-04-09 04:48] LABS: HEMOGLOBIN 7.9 g/dL (12.0-15.5); RED BLOOD COUNT 2.6 x10^6/uL (3.50-5.40); RED CELL DISTRIBUTION WIDTH 16.9 % (11.5-14.5); WHITE BLOOD COUNT 7.4 x10^3/uL (4.0-11.0)
[2017-04-09 05:37] LABS: ALBUMIN 2.6 g/dL (3.4-5.0); CREATININE 0.8 mg/dL (0.6-1.0); GFR 70.5; POTASSIUM 3.8 mmol/L (3.5-5.1); TOTAL BILIRUBIN 0.5 mg/dL (0.2-1.0); TOTAL PROTEIN 5.1 g/dL (6.4-8.2)
[2017-04-09] MEDS: IV NORMAL SALINE 1000ML BAG 1,000 ML IV SCH (07:40)
[2017-04-09] MEDS: PANTOPRAZOLE IV PUSH 40 MG VIAL. IVP SCH (07:40)
--- NOTE | 2017-04-09 09:15 | PDOC ---
PROGRESS NOTES Subjective Subjective Ms Lee did well overnight, no acute events. She is resting comfortably in bed. Reports no chest pain or shortness of breath. She has a sinus rhythm. Patient is able to ambulate w/o difficulty. Only complains of mild headaches. Objective Objective Vital Signs Date Time Temp Pulse Resp B/P (MAP) Pulse Ox O2 Delivery O2 Flow Rate FiO2 04/09/17 08:00 98.1 74 19 131/58 (82) 96 Room Air 98.1 04/08/17 20:00 Intake and Output 04/09/17 07:00 Output Total 0 ml Balance 0 ml Output Urine Total 0 ml # Voids 7 # Bowel Movements 6 Physical Exam Heart: Regular rate (and rhythm), Other (holosystolic murmur unchanged from previous exam) Extremities: No edema, Normal pulses (2/4 radial b/l) General: Alert, No acute distress Lungs: Clear to auscultation (b/l), Normal air movement Assessment Assessment Ms Lee's echo showed an ejection fraction of 55% with LV outflow obstruction. This may be due to the AVR Her current symptoms seem to be due to her anemia which is being treated. Agree with present plan Problems Medical Problems: (1) Acute dyspnea Status: Acute (2) Elevated troponin Status: Acute (3) Prerenal azotemia Status: Acute (4) Severe anemia Status: Acute Comment Review of Relevant I have reviewed the following items gabino (where applicable) has been applied. Labs Laboratory Tests Test 04/07/17 14:20 04/07/17 19:20 04/08/17 04:20 04/09/17 04:25 Hemoglobin 8.1 g/dL (12.0-15.5) 7.5 g/dL (12.0-15.5) 8.6 g/dL (12.0-15.5) 7.9 g/dL (12.0-15.5) Hematocrit 24.1 % (36.0-47.0) 21.8 % (36.0-47.0) 24.8 % (36.0-47.0) 23.0 % (36.0-47.0) White Blood Count 11.8 x10^3/uL (4.0-11.0) 9.0 x10^3/uL (4.0-11.0) 7.4 x10^3/uL (4.0-11.0) Red Blood Count 2.48 x10^6/uL (3.50-5.40) 2.87 x10^6/uL (3.50-5.40) 2.60 x10^6/uL (3.50-5.40) Mean Corpuscular Volume 88 fL (79-100) 87 fL (79-100) 88 fL (79-100) Mean Corpuscular Hemoglobin 30 pg (25-35) 30 pg (25-35) 30 pg (25-35) Mean Corpuscular Hemoglobin Concent 35 g/dL (31-37) 34 g/dL (31-37) 34 g/dL (31-37) Red Cell Distribution Width 18.0 % (11.5-14.5) 16.5 % (11.5-14.5) 16.9 % (11.5-14.5) Platelet Count 209 x10^3/uL (140-400) 175 x10^3/uL (140-400) 162 x10^3/uL (140-400) Neutrophils (%) (Auto) 72 % (31-73) Lymphocytes (%) (Auto) 22 % (24-48) Monocytes (%) (Auto) 5 % (0-9) Eosinophils (%) (Auto) 1 % (0-3) Basophils (%) (Auto) 1 % (0-3) Neutrophils # (Auto) 6.5 x10^3uL (1.8-7.7) Lymphocytes # (Auto) 1.9 x10^3/uL (1.0-4.8) Monocytes # (Auto) 0.5 x10^3/uL (0.0-1.1) Eosinophils # (Auto) 0.1 x10^3/uL (0.0-0.7) Basophils # (Auto) 0.0 x10^3/uL (0.0-0.2) Prothrombin Time 16.8 SEC (11.7-14.0) Prothromb Time International Ratio 1.5 (0.8-1.1) Sodium Level 144 mmol/L (136-145) 144 mmol/L (136-145) Potassium Level 4.2 mmol/L (3.5-5.1) 3.8 mmol/L (3.5-5.1) Chloride Level 113 mmol/L (98-107) 111 mmol/L (98-107) Carbon Dioxide Level 22 mmol/L (21-32) 21 mmol/L (21-32) Anion Gap 9 (6-14) 12 (6-14) Blood Urea Nitrogen 30 mg/dL (7-20) 18 mg/dL (7-20) Creatinine 0.9 mg/dL (0.6-1.0) 0.8 mg/dL (0.6-1.0) Estimated GFR (Cockcroft-Gault) 61.5 70.5 Glucose Level 102 mg/dL (70-99) 80 mg/dL (70-99) Calcium Level 8.1 mg/dL (8.5-10.1) 8.0 mg/dL (8.5-10.1) Magnesium Level 1.9 mg/dL (1.8-2.4) BUN/Creatinine Ratio 23 (6-20) Total Bilirubin 0.5 mg/dL (0.2-1.0) Aspartate Amino Transf (AST/SGOT) 19 U/L (15-37) Alanine Aminotransferase (ALT/SGPT) 12 U/L (14-59) Alkaline Phosphatase 91 U/L (46-116) Total Protein 5.1 g/dL (6.4-8.2) Albumin 2.6 g/dL (3.4-5.0) Albumin/Globulin Ratio 1.0 (1.0-1.7) Laboratory Tests Test 04/09/17 04:25 White Blood Count 7.4 x10^3/uL (4.0-11.0) Red Blood Count 2.60 x10^6/uL (3.50-5.40) Hemoglobin 7.9 g/dL (12.0-15.5) Hematocrit 23.0 % (36.0-47.0) Mean Corpuscular Volume 88 fL (79-100) Mean Corpuscular Hemoglobin 30 pg (25-35) Mean Corpuscular Hemoglobin Concent 34 g/dL (31-37) Red Cell Distribution Width 16.9 % (11.5-14.5) Platelet Count 162 x10^3/uL (140-400) Sodium Level 144 mmol/L (136-145) Potassium Level 3.8 mmol/L (3.5-5.1) Chloride Level 111 mmol/L (98-107) Carbon Dioxide Level 21 mmol/L (21-32) Anion Gap 12 (6-14) Blood Urea Nitrogen 18 mg/dL (7-20) Creatinine 0.8 mg/dL (0.6-1.0) Estimated GFR (Cockcroft-Gault) 70.5 BUN/Creatinine Ratio 23 (6-20) Glucose Level 80 mg/dL (70-99) Calcium Level 8.0 mg/dL (8.5-10.1) Total Bilirubin 0.5 mg/dL (0.2-1.0) Aspartate Amino Transf (AST/SGOT) 19 U/L (15-37) Alanine Aminotransferase (ALT/SGPT) 12 U/L (14-59) Alkaline Phosphatase 91 U/L (46-116) Total Protein 5.1 g/dL (6.4-8.2) Albumin 2.6 g/dL (3.4-5.0) Albumin/Globulin Ratio 1.0 (1.0-1.7) Medications Current Medications Sodium Chloride 1,000 ml @ 1,000 mls/hr 1X ONCE IV Last administered on 17:40; Start 04/06/17 at 17:30; Stop 04/06/17 at 18:29; Status DC Iohexol (Omnipaque 300 Mg/ml) 75 ml 1X ONCE IV Last administered on 04/06/17 18:00; Start 04/06/17 at 18:00; Stop 04/06/17 at 18:01; Status DC Info (Do NOT chart on this entry -- for MONITORING) 1 each PRN DAILY PRN MC SEE COMMENTS; Start 04/06/17 at 17:45; Stop 04/08/17 at 17:44; Status DC Sodium Chloride 1,000 ml @ 1,000 mls/hr 1X ONCE IV Last administered on 23:37; Start 04/06/17 at 19:00; Stop 04/06/17 at 19:59; Status DC Famotidine (Pepcid) 20 mg QHS IVP Last administered on 04/06/17 23:12; Start at 22:00; Stop 04/07/17 at 07:13; Status DC Sodium Chloride 1,000 ml @ 100 mls/hr Q10H IV Last administered on 04/09/17 07:40; Start 04/06/17 at 22:00 Ondansetron HCl (Zofran) 4 mg PRN Q4HRS PRN IV NAUSEA/VOMITING Last administered on 04/07/17 14:23; Start 04/07/17 at 07:00 Pantoprazole Sodium (Protonix Vial) 40 mg BIDAC IVP Last administered on 07:40; Start 04/07/17 at 07:30 Midazolam HCl (Versed) 5 mg STK-MED ONCE .ROUTE ; Start 04/07/17 at 12:42; Stop 04/07/17 at 12:43; Status DC Fentanyl Citrate (Fentanyl 2ml Vial) 100 mcg STK-MED ONCE .ROUTE ; Start at 12:43; Stop 04/07/17 at 12:44; Status DC Midazolam HCl (Versed) 5 mg STK-MED ONCE IV Last administered on 04/07/17 13:40 ; Start 04/07/17 at 13:40; Stop 04/07/17 at 13:58; Status DC Fentanyl Citrate (Fentanyl 2ml Vial) 100 mcg STK-MED ONCE IV Last administered on 04/07/17 13:41; Start 04/07/17 at 13:41; Stop 04/07/17 at 13:58; Status DC Midazolam HCl (Versed) 5 mg STK-MED ONCE IV Last administered on 04/07/17 13:42 ; Start 04/07/17 at 13:42; Stop 04/07/17 at 13:58; Status DC Epinephrine HCl (Adrenalin) 1 mg STK-MED ONCE .ROUTE ; Start 04/07/17 at 13:48; Stop 04/07/17 at 13:49; Status DC Midazolam HCl (Versed) 5 mg STK-MED ONCE IV Last administered on 04/07/17 13:43 ; Start 04/07/17 at 13:43; Stop 04/07/17 at 13:58; Status DC Midazolam HCl (Versed) 5 mg STK-MED ONCE IV Last administered on 04/07/17 13:44 ; Start 04/07/17 at 13:44; Stop 04/07/17 at 14:05; Status DC Epinephrine HCl (Adrenalin) 1 mg STK-MED ONCE SQ Last administered on 04/07/17t 13:46; Start 04/07/17 at 13:46; Stop 04/07/17 at 14:05; Status DC Active Scripts Active Reported Senokot-S Tablet (Sennosides/Docusate Sodium) 1 Each Tablet 2 Tab PO BID Metoprolol Tartrate 25 Mg Tablet 12.5 Mg PO BID [place] 10-325 Tablet (Acetaminophen/Hydrocodone Bitart) 1 Each Tablet 1-2 Tab PO Q4-6HRS Ferrous Sulfate 325 Mg Tablet 1 Tab PO TID Vitamin D3 (Cholecalciferol (Vitamin D3)) 1,000 Unit Tablet 1 Tab PO DAILY Atorvastatin Calcium 40 Mg Tablet 40 Mg PO HS Aspirin 325 Mg Tablet 1 Tab PO DAILY Vitals/I & O Vital Sign - Last 24 Hours 04/08/17 04/08/17 04/08/17 04/08/17 10:00 11:00 12:00 12:00 Temp 98.3 98.3 Pulse 77 80 76 Resp 20 19 17 B/P (MAP) 106/59 (75) 107/52 (70) 107/61 (76) Pulse Ox 97 97 97 O2 Delivery Room Air Room Air Room Air Room Air 04/08/17 04/08/17 04/08/17 04/08/17 13:00 14:00 15:00 16:00 Pulse 81 83 80 Resp 29 10 20 B/P (MAP) 123/59 (80) 116/54 (74) 118/63 (81) Pulse Ox 98 97 97 O2 Delivery Room Air Room Air Room Air Room Air 04/08/17 04/08/17 04/08/17 04/08/17 16:00 17:00 18:00 19:00 Temp 98.3 98.3 98.3 98.3 Pulse 75 76 81 77 Resp 25 16 18 18 B/P (MAP) 117/56 (76) 129/62 (84) 166/72 (103) 124/65 (84) Pulse Ox 97 97 100 98 O2 Delivery Room Air Room Air Room Air Room Air O2 Flow Rate 04/08/17 04/08/17 04/08/17 04/08/17 19:30 20:00 21:00 22:00 Pulse 79 76 74 Resp 18 14 13 B/P (MAP) 117/64 (81) 127/55 (79) 90/49 (63) Pulse Ox 97 96 95 O2 Delivery Room Air Room Air Room Air Room Air O2 Flow Rate 04/08/17 04/08/17 04/09/17 04/09/17 23:00 23:59 00:00 01:00 Temp 97.9 97.9 Pulse 71 70 72 Resp 12 12 12 B/P (MAP) 101/50 (67) 109/57 (74) 103/53 (70) Pulse Ox 97 96 96 O2 Delivery Room Air Room Air Room Air Room Air 04/09/17 04/09/17 04/09/17 04/09/17 02:00 03:00 04:00 04:00 Temp 98.0 98.0 Pulse 68 74 72 Resp 11 15 18 B/P (MAP) 115/57 (76) 113/57 (75) 119/51 (73) Pulse Ox 96 97 96 O2 Delivery Room Air Room Air Room Air Room Air 04/09/17 04/09/17 04/09/17 04/09/17 05:00 06:00 07:00 08:00 Temp 98.1 98.1 Pulse 76 72 74 74 Resp 16 16 11 19 B/P (MAP) 127/59 (81) 137/67 (90) 118/55 (76) 131/58 (82) Pulse Ox 96 97 96 96 O2 Delivery Room Air Room Air Room Air Room Air Intake and Output 04/08/17 04/08/17 04/09/17 15:00 23:00 07:00 Output Total 0 ml Balance 0 ml EMILY AQUINO MD Apr 09, 2017 09:15
--- NOTE | 2017-04-09 09:47 | PDOC ---
Subjective: Subjective: No further BMs/bleeding. Wants to eat/drink, wants to get out of ICU, wants to go home. Objective: Vital Signs: Vital Signs Date Time Temp Pulse Resp B/P (MAP) Pulse Ox O2 Delivery O2 Flow Rate FiO2 04/09/17 09:00 78 16 126/64 (84) 96 Room Air 04/09/17 08:00 98.1 98.1 04/08/17 20:00 Labs: Laboratory Tests Test 04/09/17 04:25 White Blood Count 7.4 x10^3/uL Red Blood Count 2.60 x10^6/uL Hemoglobin 7.9 g/dL Hematocrit 23.0 % Mean Corpuscular Volume 88 fL Mean Corpuscular Hemoglobin 30 pg Mean Corpuscular Hemoglobin Concent 34 g/dL Red Cell Distribution Width 16.9 % Platelet Count 162 x10^3/uL Sodium Level 144 mmol/L Potassium Level 3.8 mmol/L Chloride Level 111 mmol/L Carbon Dioxide Level 21 mmol/L Anion Gap 12 Blood Urea Nitrogen 18 mg/dL Creatinine 0.8 mg/dL Estimated GFR (Cockcroft-Gault) 70.5 BUN/Creatinine Ratio 23 Glucose Level 80 mg/dL Calcium Level 8.0 mg/dL Total Bilirubin 0.5 mg/dL Aspartate Amino Transf (AST/SGOT) 19 U/L Alanine Aminotransferase (ALT/SGPT) 12 U/L Alkaline Phosphatase 91 U/L Total Protein 5.1 g/dL Albumin 2.6 g/dL Albumin/Globulin Ratio 1.0 PE: GEN: NAD LUNGS: clear HEART: RRR ABD: S/ND/NT NEURO/PSYCH: A & O 3 A/P: Duodenal ulcer -s/p EGD 04/07 w/ epi/cautery -IR and surgery following Anemia -Hgb from 8.6 to 7.9 -has transfused 4 units pRBCs total Hematemesis/melena - resolved -- Okay to try clears. Will change to PO PPI. KERA SHEIKH Apr 09, 2017 09:47
--- NOTE | 2017-04-09 10:32 | PDOC ---
SURGICAL PROGRESS NOTE Subjective Pt without c/o, feels better, no stools, naya clears Vital Signs Vital Signs Date Time Temp Pulse Resp B/P (MAP) Pulse Ox O2 Delivery O2 Flow Rate FiO2 04/09/17 10:00 95 30 127/52 (77) 97 Room Air 04/09/17 08:00 98.1 98.1 04/08/17 20:00 I&O Intake and Output 04/09/17 07:00 Output Total 0 ml Balance 0 ml Output Urine Total 0 ml # Voids 7 # Bowel Movements 6 General: Alert, Oriented X3, Cooperative, No acute distress Abdomen: Soft, No tenderness Labs Laboratory Tests Test 04/07/17 14:20 04/07/17 19:20 04/08/17 04:20 04/09/17 04:25 Hemoglobin 8.1 g/dL (12.0-15.5) 7.5 g/dL (12.0-15.5) 8.6 g/dL (12.0-15.5) 7.9 g/dL (12.0-15.5) Hematocrit 24.1 % (36.0-47.0) 21.8 % (36.0-47.0) 24.8 % (36.0-47.0) 23.0 % (36.0-47.0) White Blood Count 11.8 x10^3/uL (4.0-11.0) 9.0 x10^3/uL (4.0-11.0) 7.4 x10^3/uL (4.0-11.0) Red Blood Count 2.48 x10^6/uL (3.50-5.40) 2.87 x10^6/uL (3.50-5.40) 2.60 x10^6/uL (3.50-5.40) Mean Corpuscular Volume 88 fL (79-100) 87 fL (79-100) 88 fL (79-100) Mean Corpuscular Hemoglobin 30 pg (25-35) 30 pg (25-35) 30 pg (25-35) Mean Corpuscular Hemoglobin Concent 35 g/dL (31-37) 34 g/dL (31-37) 34 g/dL (31-37) Red Cell Distribution Width 18.0 % (11.5-14.5) 16.5 % (11.5-14.5) 16.9 % (11.5-14.5) Platelet Count 209 x10^3/uL (140-400) 175 x10^3/uL (140-400) 162 x10^3/uL (140-400) Neutrophils (%) (Auto) 72 % (31-73) Lymphocytes (%) (Auto) 22 % (24-48) Monocytes (%) (Auto) 5 % (0-9) Eosinophils (%) (Auto) 1 % (0-3) Basophils (%) (Auto) 1 % (0-3) Neutrophils # (Auto) 6.5 x10^3uL (1.8-7.7) Lymphocytes # (Auto) 1.9 x10^3/uL (1.0-4.8) Monocytes # (Auto) 0.5 x10^3/uL (0.0-1.1) Eosinophils # (Auto) 0.1 x10^3/uL (0.0-0.7) Basophils # (Auto) 0.0 x10^3/uL (0.0-0.2) Prothrombin Time 16.8 SEC (11.7-14.0) Prothromb Time International Ratio 1.5 (0.8-1.1) Sodium Level 144 mmol/L (136-145) 144 mmol/L (136-145) Potassium Level 4.2 mmol/L (3.5-5.1) 3.8 mmol/L (3.5-5.1) Chloride Level 113 mmol/L (98-107) 111 mmol/L (98-107) Carbon Dioxide Level 22 mmol/L (21-32) 21 mmol/L (21-32) Anion Gap 9 (6-14) 12 (6-14) Blood Urea Nitrogen 30 mg/dL (7-20) 18 mg/dL (7-20) Creatinine 0.9 mg/dL (0.6-1.0) 0.8 mg/dL (0.6-1.0) Estimated GFR (Cockcroft-Gault) 61.5 70.5 Glucose Level 102 mg/dL (70-99) 80 mg/dL (70-99) Calcium Level 8.1 mg/dL (8.5-10.1) 8.0 mg/dL (8.5-10.1) Magnesium Level 1.9 mg/dL (1.8-2.4) BUN/Creatinine Ratio 23 (6-20) Total Bilirubin 0.5 mg/dL (0.2-1.0) Aspartate Amino Transf (AST/SGOT) 19 U/L (15-37) Alanine Aminotransferase (ALT/SGPT) 12 U/L (14-59) Alkaline Phosphatase 91 U/L (46-116) Total Protein 5.1 g/dL (6.4-8.2) Albumin 2.6 g/dL (3.4-5.0) Albumin/Globulin Ratio 1.0 (1.0-1.7) Laboratory Tests Test 04/09/17 04:25 White Blood Count 7.4 x10^3/uL (4.0-11.0) Red Blood Count 2.60 x10^6/uL (3.50-5.40) Hemoglobin 7.9 g/dL (12.0-15.5) Hematocrit 23.0 % (36.0-47.0) Mean Corpuscular Volume 88 fL (79-100) Mean Corpuscular Hemoglobin 30 pg (25-35) Mean Corpuscular Hemoglobin Concent 34 g/dL (31-37) Red Cell Distribution Width 16.9 % (11.5-14.5) Platelet Count 162 x10^3/uL (140-400) Sodium Level 144 mmol/L (136-145) Potassium Level 3.8 mmol/L (3.5-5.1) Chloride Level 111 mmol/L (98-107) Carbon Dioxide Level 21 mmol/L (21-32) Anion Gap 12 (6-14) Blood Urea Nitrogen 18 mg/dL (7-20) Creatinine 0.8 mg/dL (0.6-1.0) Estimated GFR (Cockcroft-Gault) 70.5 BUN/Creatinine Ratio 23 (6-20) Glucose Level 80 mg/dL (70-99) Calcium Level 8.0 mg/dL (8.5-10.1) Total Bilirubin 0.5 mg/dL (0.2-1.0) Aspartate Amino Transf (AST/SGOT) 19 U/L (15-37) Alanine Aminotransferase (ALT/SGPT) 12 U/L (14-59) Alkaline Phosphatase 91 U/L (46-116) Total Protein 5.1 g/dL (6.4-8.2) Albumin 2.6 g/dL (3.4-5.0) Albumin/Globulin Ratio 1.0 (1.0-1.7) Problem List Problems Medical Problems: (1) Acute dyspnea Status: Acute (2) Elevated troponin Status: Acute (3) Prerenal azotemia Status: Acute (4) Severe anemia Status: Acute Assessment/Plan appears to be doing well no surgical plans Problems: EUSEBIA BARRETO MD Apr 09, 2017 10:32 am
--- NOTE | 2017-04-09 10:40 | PDOC ---
PROGRESS NOTES Subjective Subjective seen in ICU for dr quiñones Objective Objective Vital Signs Date Time Temp Pulse Resp B/P (MAP) Pulse Ox O2 Delivery O2 Flow Rate FiO2 04/09/17 10:00 95 30 127/52 (77) 97 Room Air 04/09/17 08:00 98.1 98.1 04/08/17 20:00 Intake and Output 04/09/17 06:59 Output Total 0 ml Balance 0 ml Output Urine Total 0 ml # Voids 7 # Bowel Movements 6 Physical Exam Abdomen: Soft, No tenderness Heart: Regular rate (and rhythm), Other (holosystolic murmur unchanged from previous exam) Extremities: No edema, Normal pulses (2/4 radial b/l) General: Alert, Oriented X3, Cooperative, No acute distress HEENT: Atraumatic, EOMI Lungs: Clear to auscultation (b/l), Normal air movement MUSCULOSKELETAL: No joint tenderness Neuro: Normal speech Skin: No rashes, No breakdown Diagnosis Problem List Problems Medical Problems: (1) Acute dyspnea Status: Acute (2) Elevated troponin Status: Acute (3) Prerenal azotemia Status: Acute (4) Severe anemia Status: Acute Assessment Assessment Problems Medical Problems: (1) Acute dyspnea Status: Acute (2) Elevated troponin Status: Acute (3) Prerenal azotemia Status: Acute (4) Severe anemia Status: Acute Pre-op dx acute blood loss anemia/hematemesis Post-op dx bleeding duodenal ulcer posterior wall ist portion duodenum s/p 9 cc epi injection and gold probe cautery with pigmented protuberance Problems: Plan Plan of Care S/p transfusion 4 units.Hb stable 8.0 clear liquid diet, advance as tolerated Post-op dx bleeding duodenal ulcer posterior wall ist portion duodenum s/p 9 cc epi injection and gold probe cautery with pigmented protuberance. home tomorrow? Comment Review of Relevant I have reviewed the following items gabino (where applicable) has been applied. Labs Laboratory Tests Test 04/09/17 04:25 White Blood Count 7.4 x10^3/uL (4.0-11.0) Red Blood Count 2.60 x10^6/uL (3.50-5.40) Hemoglobin 7.9 g/dL (12.0-15.5) Hematocrit 23.0 % (36.0-47.0) Mean Corpuscular Volume 88 fL (79-100) Mean Corpuscular Hemoglobin 30 pg (25-35) Mean Corpuscular Hemoglobin Concent 34 g/dL (31-37) Red Cell Distribution Width 16.9 % (11.5-14.5) Platelet Count 162 x10^3/uL (140-400) Sodium Level 144 mmol/L (136-145) Potassium Level 3.8 mmol/L (3.5-5.1) Chloride Level 111 mmol/L (98-107) Carbon Dioxide Level 21 mmol/L (21-32) Anion Gap 12 (6-14) Blood Urea Nitrogen 18 mg/dL (7-20) Creatinine 0.8 mg/dL (0.6-1.0) Estimated GFR (Cockcroft-Gault) 70.5 BUN/Creatinine Ratio 23 (6-20) Glucose Level 80 mg/dL (70-99) Calcium Level 8.0 mg/dL (8.5-10.1) Total Bilirubin 0.5 mg/dL (0.2-1.0) Aspartate Amino Transf (AST/SGOT) 19 U/L (15-37) Alanine Aminotransferase (ALT/SGPT) 12 U/L (14-59) Alkaline Phosphatase 91 U/L (46-116) Total Protein 5.1 g/dL (6.4-8.2) Albumin 2.6 g/dL (3.4-5.0) Albumin/Globulin Ratio 1.0 (1.0-1.7) Medications Current Medications Pantoprazole Sodium (Protonix) 40 mg BIDAC PO ; Start 04/09/17 at 16:30 Vitals/I & O Vital Sign - Last 24 Hours 04/08/17 04/08/17 04/08/17 04/08/17 11:00 12:00 12:00 13:00 Temp 98.3 98.3 Pulse 80 76 81 Resp 19 17 29 B/P (MAP) 107/52 (70) 107/61 (76) 123/59 (80) Pulse Ox 97 97 98 O2 Delivery Room Air Room Air Room Air Room Air 04/08/17 04/08/17 04/08/17 04/08/17 14:00 15:00 16:00 16:00 Temp 98.3 98.3 Pulse 83 80 75 Resp 10 20 25 B/P (MAP) 116/54 (74) 118/63 (81) 117/56 (76) Pulse Ox 97 97 97 O2 Delivery Room Air Room Air Room Air Room Air 04/08/17 04/08/17 04/08/17 04/08/17 17:00 18:00 19:00 19:30 Temp 98.3 98.3 Pulse 76 81 77 Resp 16 18 18 B/P (MAP) 129/62 (84) 166/72 (103) 124/65 (84) Pulse Ox 97 100 98 O2 Delivery Room Air Room Air Room Air Room Air O2 Flow Rate 04/08/17 04/08/17 04/08/17 04/08/17 20:00 21:00 22:00 23:00 Pulse 79 76 74 71 Resp 18 14 13 12 B/P (MAP) 117/64 (81) 127/55 (79) 90/49 (63) 101/50 (67) Pulse Ox 97 96 95 97 O2 Delivery Room Air Room Air Room Air Room Air O2 Flow Rate 04/08/17 04/09/17 04/09/17 04/09/17 23:59 00:00 01:00 02:00 Temp 97.9 97.9 Pulse 70 72 68 Resp 12 12 11 B/P (MAP) 109/57 (74) 103/53 (70) 115/57 (76) Pulse Ox 96 96 96 O2 Delivery Room Air Room Air Room Air Room Air 04/09/17 04/09/17 04/09/17 04/09/17 03:00 04:00 04:00 05:00 Temp 98.0 98.0 Pulse 74 72 76 Resp 15 18 16 B/P (MAP) 113/57 (75) 119/51 (73) 127/59 (81) Pulse Ox 97 96 96 O2 Delivery Room Air Room Air Room Air Room Air 04/09/17 04/09/17 04/09/17 04/09/17 06:00 07:00 08:00 08:00 Temp 98.1 98.1 Pulse 72 74 74 Resp 16 11 19 B/P (MAP) 137/67 (90) 118/55 (76) 131/58 (82) Pulse Ox 97 96 96 O2 Delivery Room Air Room Air Room Air Room Air 04/09/17 04/09/17 09:00 10:00 Pulse 78 95 Resp 16 30 B/P (MAP) 126/64 (84) 127/52 (77) Pulse Ox 96 97 O2 Delivery Room Air Room Air Intake and Output 04/08/17 04/08/17 04/09/17 14:59 22:59 06:59 Output Total 0 ml Balance 0 ml FAM SILVERIO MD Apr 09, 2017 10:40
[2017-04-09] MEDS: PANTOPRAZOLE 40 MG TABLET.DR. PO SCH (16:20)
[2017-04-10 06:42] LABS: HEMATOCRIT 23.8 % (36.0-47.0); HEMOGLOBIN 8.4 g/dL (12.0-15.5); RED BLOOD COUNT 2.75 x10^6/uL (3.50-5.40); RED CELL DISTRIBUTION WIDTH 16.2 % (11.5-14.5); WHITE BLOOD COUNT 6.7 x10^3/uL (4.0-11.0)
[2017-04-10 07:00] VITALS: BP 134/66
[2017-04-10] MEDS: PANTOPRAZOLE 40 MG TABLET.DR. PO SCH (09:21)
[2017-04-10] MEDS ORDERED: PANT40TA5 PO (10:36)
--- NOTE | 2017-04-10 10:38 | PDOC ---
PROGRESS NOTES Subjective Subjective doing well ,hb stable ,no more bleeding Objective Objective Vital Signs Date Time Temp Pulse Resp B/P (MAP) Pulse Ox O2 Delivery O2 Flow Rate FiO2 04/10/17 07:00 98.6 74 18 134/66 (88) 96 Room Air 98.6 04/09/17 20:00 2.0 Intake and Output 04/10/17 07:00 Intake Total 2410 ml Output Total 1 ml Balance 2409 ml Intake Oral 2410 ml Urine/Stool Mix 1 ml # Voids 2 Physical Exam Abdomen: Soft, No tenderness Heart: Regular rate (and rhythm), Other (holosystolic murmur unchanged from previous exam) Extremities: No edema, Normal pulses (2/4 radial b/l) General: Alert, Oriented X3, Cooperative, No acute distress HEENT: Atraumatic, EOMI Lungs: Clear to auscultation (b/l), Normal air movement MUSCULOSKELETAL: No joint tenderness Neuro: Normal speech Skin: No rashes, No breakdown Diagnosis Problem List Problems Medical Problems: (1) Acute dyspnea Status: Acute (2) Elevated troponin Status: Acute (3) Prerenal azotemia Status: Acute (4) Severe anemia Status: Acute Assessment Assessment Problems Medical Problems: (1) Acute dyspnea Status: Acute (2) Elevated troponin Status: Acute (3) Prerenal azotemia Status: Acute (4) Severe anemia Status: Acute Pre-op dx acute blood loss anemia/hematemesis Post-op dx bleeding duodenal ulcer posterior wall ist portion duodenum s/p 9 cc epi injection and gold probe cautery with pigmented protuberance Problems: Plan Plan of Care d/c home protonix 40 mg po bid stop asa f/u pcp in 1 week f/ gi in 8 weeks Comment Review of Relevant I have reviewed the following items gabino (where applicable) has been applied. Labs Laboratory Tests Test 04/10/17 06:20 White Blood Count 6.7 x10^3/uL (4.0-11.0) Red Blood Count 2.75 x10^6/uL (3.50-5.40) Hemoglobin 8.4 g/dL (12.0-15.5) Hematocrit 23.8 % (36.0-47.0) Mean Corpuscular Volume 87 fL (79-100) Mean Corpuscular Hemoglobin 31 pg (25-35) Mean Corpuscular Hemoglobin Concent 35 g/dL (31-37) Red Cell Distribution Width 16.2 % (11.5-14.5) Platelet Count 183 x10^3/uL (140-400) Medications Current Medications Pantoprazole Sodium (Protonix) 40 mg BIDAC PO Last administered on 04/10/17t 09 :21; Start 04/09/17 at 16:30 Vitals/I & O Vital Sign - Last 24 Hours 04/09/17 04/09/17 04/09/17 04/09/17 11:00 12:00 12:00 16:21 Temp 98.0 97.8 98.0 97.8 Pulse 79 93 92 Resp 13 30 16 B/P (MAP) 129/44 (72) 103/54 (70) 146/77 (100) Pulse Ox 97 99 99 O2 Delivery Room Air Room Air Room Air Room Air 04/09/17 04/09/17 04/09/17 04/10/17 19:00 20:00 22:36 07:00 Temp 97.7 97.5 98.6 97.7 97.5 98.6 Pulse 83 77 74 Resp 18 18 18 B/P (MAP) 110/57 (74) 121/57 (78) 134/66 (88) Pulse Ox 97 94 96 O2 Delivery Room Air Room Air Room Air Room Air O2 Flow Rate 2.0 Intake and Output 04/09/17 04/09/17 04/10/17 15:00 23:00 07:00 Intake Total 300 ml 1110 ml 1000 ml Output Total 1 ml Balance 300 ml 1109 ml 1000 ml FAM SILVERIO MD Apr 10, 2017 10:38
[2017-04-10 11:00] VITALS: BP 123/63
--- NOTE | 2017-04-10 11:03 | PDOC ---
PROGRESS NOTES Subjective Subjective Ms Lee did well overnight. She feels excellent and wishes to go home. She reports no chest pain or shortness of breath. Objective Objective Vital Signs Date Time Temp Pulse Resp B/P (MAP) Pulse Ox O2 Delivery O2 Flow Rate FiO2 04/10/17 07:00 98.6 74 18 134/66 (88) 96 Room Air 98.6 04/09/17 20:00 2.0 Intake and Output 04/10/17 07:00 Intake Total 2410 ml Output Total 1 ml Balance 2409 ml Intake Oral 2410 ml Urine/Stool Mix 1 ml # Voids 2 Physical Exam Heart: Regular rate (and rhythm), Other (systolic murmur as noted on previous exam) Extremities: No edema, Normal pulses (2/4 radial b/l) General: Alert, No acute distress Lungs: Clear to auscultation (b/l), Normal air movement Assessment Assessment Ms Lee's echo showed an ejection fraction of 55% with LV outflow obstruction. This may be due to the AVR Her current symptoms seem to be due to her anemia which is being treated. Patient is stable from cardiac standpoint for discharge Recommend she follow up with Dr May at Problems Medical Problems: (1) Acute dyspnea Status: Acute (2) Elevated troponin Status: Acute (3) Prerenal azotemia Status: Acute (4) Severe anemia Status: Acute Comment Review of Relevant I have reviewed the following items gabino (where applicable) has been applied. Labs Laboratory Tests Test 04/09/17 04:25 04/10/17 06:20 White Blood Count 7.4 x10^3/uL (4.0-11.0) 6.7 x10^3/uL (4.0-11.0) Red Blood Count 2.60 x10^6/uL (3.50-5.40) 2.75 x10^6/uL (3.50-5.40) Hemoglobin 7.9 g/dL (12.0-15.5) 8.4 g/dL (12.0-15.5) Hematocrit 23.0 % (36.0-47.0) 23.8 % (36.0-47.0) Mean Corpuscular Volume 88 fL (79-100) 87 fL (79-100) Mean Corpuscular Hemoglobin 30 pg (25-35) 31 pg (25-35) Mean Corpuscular Hemoglobin Concent 34 g/dL (31-37) 35 g/dL (31-37) Red Cell Distribution Width 16.9 % (11.5-14.5) 16.2 % (11.5-14.5) Platelet Count 162 x10^3/uL (140-400) 183 x10^3/uL (140-400) Sodium Level 144 mmol/L (136-145) Potassium Level 3.8 mmol/L (3.5-5.1) Chloride Level 111 mmol/L (98-107) Carbon Dioxide Level 21 mmol/L (21-32) Anion Gap 12 (6-14) Blood Urea Nitrogen 18 mg/dL (7-20) Creatinine 0.8 mg/dL (0.6-1.0) Estimated GFR (Cockcroft-Gault) 70.5 BUN/Creatinine Ratio 23 (6-20) Glucose Level 80 mg/dL (70-99) Calcium Level 8.0 mg/dL (8.5-10.1) Total Bilirubin 0.5 mg/dL (0.2-1.0) Aspartate Amino Transf (AST/SGOT) 19 U/L (15-37) Alanine Aminotransferase (ALT/SGPT) 12 U/L (14-59) Alkaline Phosphatase 91 U/L (46-116) Total Protein 5.1 g/dL (6.4-8.2) Albumin 2.6 g/dL (3.4-5.0) Albumin/Globulin Ratio 1.0 (1.0-1.7) Laboratory Tests Test 04/10/17 06:20 White Blood Count 6.7 x10^3/uL (4.0-11.0) Red Blood Count 2.75 x10^6/uL (3.50-5.40) Hemoglobin 8.4 g/dL (12.0-15.5) Hematocrit 23.8 % (36.0-47.0) Mean Corpuscular Volume 87 fL (79-100) Mean Corpuscular Hemoglobin 31 pg (25-35) Mean Corpuscular Hemoglobin Concent 35 g/dL (31-37) Red Cell Distribution Width 16.2 % (11.5-14.5) Platelet Count 183 x10^3/uL (140-400) Medications Current Medications Sodium Chloride 1,000 ml @ 1,000 mls/hr 1X ONCE IV Last administered on 17:40; Start 04/06/17 at 17:30; Stop 04/06/17 at 18:29; Status DC Iohexol (Omnipaque 300 Mg/ml) 75 ml 1X ONCE IV Last administered on 04/06/17 18:00; Start 04/06/17 at 18:00; Stop 04/06/17 at 18:01; Status DC Info (Do NOT chart on this entry -- for MONITORING) 1 each PRN DAILY PRN MC SEE COMMENTS; Start 04/06/17 at 17:45; Stop 04/08/17 at 17:44; Status DC Sodium Chloride 1,000 ml @ 1,000 mls/hr 1X ONCE IV Last administered on 23:37; Start 04/06/17 at 19:00; Stop 04/06/17 at 19:59; Status DC Famotidine (Pepcid) 20 mg QHS IVP Last administered on 04/06/17 23:12; Start at 22:00; Stop 04/07/17 at 07:13; Status DC Sodium Chloride 1,000 ml @ 100 mls/hr Q10H IV Last administered on 04/09/17 07:40; Start 04/06/17 at 22:00; Stop 04/09/17 at 14:02; Status DC Ondansetron HCl (Zofran) 4 mg PRN Q4HRS PRN IV NAUSEA/VOMITING Last administered on 04/07/17 14:23; Start 04/07/17 at 07:00 Pantoprazole Sodium (Protonix Vial) 40 mg BIDAC IVP Last administered on 07:40; Start 04/07/17 at 07:30; Stop 04/09/17 at 09:49; Status DC Midazolam HCl (Versed) 5 mg STK-MED ONCE .ROUTE ; Start 04/07/17 at 12:42; Stop 04/07/17 at 12:43; Status DC Fentanyl Citrate (Fentanyl 2ml Vial) 100 mcg STK-MED ONCE .ROUTE ; Start at 12:43; Stop 04/07/17 at 12:44; Status DC Midazolam HCl (Versed) 5 mg STK-MED ONCE IV Last administered on 04/07/17 13:40 ; Start 04/07/17 at 13:40; Stop 04/07/17 at 13:58; Status DC Fentanyl Citrate (Fentanyl 2ml Vial) 100 mcg STK-MED ONCE IV Last administered on 04/07/17 13:41; Start 04/07/17 at 13:41; Stop 04/07/17 at 13:58; Status DC Midazolam HCl (Versed) 5 mg STK-MED ONCE IV Last administered on 04/07/17 13:42 ; Start 04/07/17 at 13:42; Stop 04/07/17 at 13:58; Status DC Epinephrine HCl (Adrenalin) 1 mg STK-MED ONCE .ROUTE ; Start 04/07/17 at 13:48; Stop 04/07/17 at 13:49; Status DC Midazolam HCl (Versed) 5 mg STK-MED ONCE IV Last administered on 04/07/17 13:43 ; Start 04/07/17 at 13:43; Stop 04/07/17 at 13:58; Status DC Midazolam HCl (Versed) 5 mg STK-MED ONCE IV Last administered on 04/07/17 13:44 ; Start 04/07/17 at 13:44; Stop 04/07/17 at 14:05; Status DC Epinephrine HCl (Adrenalin) 1 mg STK-MED ONCE SQ Last administered on 04/07/17 13:46; Start 04/07/17 at 13:46; Stop 04/07/17 at 14:05; Status DC Pantoprazole Sodium (Protonix) 40 mg BIDAC PO Last administered on 04/10/17 09 :21; Start 04/09/17 at 16:30 Active Scripts Active Reported Senokot-S Tablet (Sennosides/Docusate Sodium) 1 Each Tablet 2 Tab PO BID Metoprolol Tartrate 25 Mg Tablet 12.5 Mg PO BID [place] 10-325 Tablet (Acetaminophen/Hydrocodone Bitart) 1 Each Tablet 1-2 Tab PO Q4-6HRS Ferrous Sulfate 325 Mg Tablet 1 Tab PO TID Vitamin D3 (Cholecalciferol (Vitamin D3)) 1,000 Unit Tablet 1 Tab PO DAILY Atorvastatin Calcium 40 Mg Tablet 40 Mg PO HS Aspirin 325 Mg Tablet 1 Tab PO DAILY Vitals/I & O Vital Sign - Last 24 Hours 04/09/17 04/09/17 04/09/17 04/09/17 12:00 12:00 16:21 19:00 Temp 98.0 97.8 97.7 98.0 97.8 97.7 Pulse 93 92 83 Resp 30 16 18 B/P (MAP) 103/54 (70) 146/77 (100) 110/57 (74) Pulse Ox 99 99 97 O2 Delivery Room Air Room Air Room Air Room Air 04/09/17 04/09/17 04/10/17 20:00 22:36 07:00 Temp 97.5 98.6 97.5 98.6 Pulse 77 74 Resp 18 18 B/P (MAP) 121/57 (78) 134/66 (88) Pulse Ox 94 96 O2 Delivery Room Air Room Air Room Air O2 Flow Rate 2.0 Intake and Output 04/09/17 04/09/17 04/10/17 15:00 23:00 07:00 Intake Total 300 ml 1110 ml 1000 ml Output Total 1 ml Balance 300 ml 1109 ml 1000 ml EMILY AQUINO MD Apr 10, 2017 11:03
--- NOTE | 2017-04-10 12:53 | PDOC ---
Subjective: Subjective: Feeling well. Tolerating PO. Has had some yellowish stools. Says going home today. Objective: Vital Signs: Vital Signs Date Time Temp Pulse Resp B/P (MAP) Pulse Ox O2 Delivery O2 Flow Rate FiO2 04/10/17 11:00 98.5 80 18 123/63 (83) 96 Room Air 98.5 04/09/17 20:00 2.0 Labs: Laboratory Tests Test 04/10/17 06:20 White Blood Count 6.7 x10^3/uL Red Blood Count 2.75 x10^6/uL Hemoglobin 8.4 g/dL Hematocrit 23.8 % Mean Corpuscular Volume 87 fL Mean Corpuscular Hemoglobin 31 pg Mean Corpuscular Hemoglobin Concent 35 g/dL Red Cell Distribution Width 16.2 % Platelet Count 183 x10^3/uL PE: GEN: NAD LUNGS: CTAB HEART: RRR ABD: S/ND/NT NEURO/PSYCH: A & O 3 A/P: Duodenal ulcer -s/p EGD 04/07 w/ epi/cautery Anemia -Hgb improved/stable Hematemesis/melena - resolved -- Tolerating PO w/o recurrent bleeding, Hgb improving. DC plans noted - okay per GI. Continue PPI. KERA SHEIKH Apr 10, 2017 12:53
--- NOTE | 2017-04-10 13:48 | PDOC ---
SURGICAL PROGRESS NOTE Subjective Pt reports doing well, denies complaint, naya PO Vital Signs Vital Signs Date Time Temp Pulse Resp B/P (MAP) Pulse Ox O2 Delivery O2 Flow Rate FiO2 04/10/17 11:00 98.5 80 18 123/63 (83) 96 Room Air 98.5 04/09/17 20:00 2.0 I&O Intake and Output 04/10/17 07:00 Intake Total 2410 ml Output Total 1 ml Balance 2409 ml Intake Oral 2410 ml Urine/Stool Mix 1 ml # Voids 2 General: Alert, Oriented X3, Cooperative, No acute distress Abdomen: Soft, No tenderness Labs Laboratory Tests Test 04/09/17 04:25 04/10/17 06:20 White Blood Count 7.4 x10^3/uL (4.0-11.0) 6.7 x10^3/uL (4.0-11.0) Red Blood Count 2.60 x10^6/uL (3.50-5.40) 2.75 x10^6/uL (3.50-5.40) Hemoglobin 7.9 g/dL (12.0-15.5) 8.4 g/dL (12.0-15.5) Hematocrit 23.0 % (36.0-47.0) 23.8 % (36.0-47.0) Mean Corpuscular Volume 88 fL (79-100) 87 fL (79-100) Mean Corpuscular Hemoglobin 30 pg (25-35) 31 pg (25-35) Mean Corpuscular Hemoglobin Concent 34 g/dL (31-37) 35 g/dL (31-37) Red Cell Distribution Width 16.9 % (11.5-14.5) 16.2 % (11.5-14.5) Platelet Count 162 x10^3/uL (140-400) 183 x10^3/uL (140-400) Sodium Level 144 mmol/L (136-145) Potassium Level 3.8 mmol/L (3.5-5.1) Chloride Level 111 mmol/L (98-107) Carbon Dioxide Level 21 mmol/L (21-32) Anion Gap 12 (6-14) Blood Urea Nitrogen 18 mg/dL (7-20) Creatinine 0.8 mg/dL (0.6-1.0) Estimated GFR (Cockcroft-Gault) 70.5 BUN/Creatinine Ratio 23 (6-20) Glucose Level 80 mg/dL (70-99) Calcium Level 8.0 mg/dL (8.5-10.1) Total Bilirubin 0.5 mg/dL (0.2-1.0) Aspartate Amino Transf (AST/SGOT) 19 U/L (15-37) Alanine Aminotransferase (ALT/SGPT) 12 U/L (14-59) Alkaline Phosphatase 91 U/L (46-116) Total Protein 5.1 g/dL (6.4-8.2) Albumin 2.6 g/dL (3.4-5.0) Albumin/Globulin Ratio 1.0 (1.0-1.7) Laboratory Tests Test 04/10/17 06:20 White Blood Count 6.7 x10^3/uL (4.0-11.0) Red Blood Count 2.75 x10^6/uL (3.50-5.40) Hemoglobin 8.4 g/dL (12.0-15.5) Hematocrit 23.8 % (36.0-47.0) Mean Corpuscular Volume 87 fL (79-100) Mean Corpuscular Hemoglobin 31 pg (25-35) Mean Corpuscular Hemoglobin Concent 35 g/dL (31-37) Red Cell Distribution Width 16.2 % (11.5-14.5) Platelet Count 183 x10^3/uL (140-400) Problem List Problems Medical Problems: (1) Acute dyspnea Status: Acute (2) Elevated troponin Status: Acute (3) Prerenal azotemia Status: Acute (4) Severe anemia Status: Acute Assessment/Plan bleeding ulcer, controlled ADAT OK to d/c will sign off, but please call for questions Problems: EUSEBIA BARRETO MD Apr 10, 2017 13:48
== END 2017-04-10 12:59 | disposition home or self-care (01) | DRG 377 ==
LOC: ER 16:13 → 1 WEST ICU 19:10 → 5 NORTH 04-09 15:53
PROVIDERS: ADMIT Internal Medicine; ATTEND Internal Medicine
PROC: 0W3P8ZZ Control Bleeding in Gastrointestinal Tract, Via Natural or Artificial Opening Endoscopic (ICD-10-PCS; principal; 2017-04-06)
PROC: 3E0G8GC Introduction of Other Therapeutic Substance into Upper GI, Via Natural or Artificial Opening Endoscopic (ICD-10-PCS; 2017-04-06)
PROC: 30233N1 Transfusion of Nonautologous Red Blood Cells into Peripheral Vein, Percutaneous Approach (ICD-10-PCS; 2017-04-06)
DX: K26.4 Chronic or unspecified duodenal ulcer with hemorrhage (principal); E43 Unspecified severe protein-calorie malnutrition; D62 Acute posthemorrhagic anemia; I42.9 Cardiomyopathy, unspecified; K26.0 Acute duodenal ulcer with hemorrhage; I25.10 Atherosclerotic heart disease of native coronary artery without angina pectoris; I11.0 Hypertensive heart disease with heart failure; E78.5 Hyperlipidemia, unspecified; E78.00 Pure hypercholesterolemia, unspecified; I44.7 Left bundle-branch block, unspecified; I50.9 Heart failure, unspecified; G25.81 Restless legs syndrome; R61 Generalized hyperhidrosis; Z68.29 Body mass index [BMI] 29.0-29.9, adult; Z95.1 Presence of aortocoronary bypass graft; Z98.49 Cataract extraction status, unspecified eye; Z90.49 Acquired absence of other specified parts of digestive tract; Z79.899 Other long term (current) drug therapy; Z83.3 Family history of diabetes mellitus; Z82.49 Family history of ischemic heart disease and other diseases of the circulatory system; Z80.9 Family history of malignant neoplasm, unspecified
CPT/HCPCS: 99285; C8929; 36415; 71010; 71275; 80048; 80053; 82274; 83735; 84484; 85014; 85018; 85027; 85610; 86850; 86900; 86901; 86920; 87641; 93005; 96360; 96361; A6539; C9113; J0171; J2250; J2405; J3010; J7030; P9016; Q9967; S0028